=== PATIENT | female | born 1950 | race Caucasian/White ===

== ENCOUNTER → 2022-12-21 | Outpatient (CLI) | payer MEDICARE, OTHER ==
--- NOTE | 2022-12-21 18:59 | BD ---
EXAMINATION TYPE: Axial Bone Density DATE OF EXAM: 12/21/2022 CLINICAL HISTORY: 72 years old Female. ICD-10 CODE: Z78.0 ASYMPTOMATIC RU M89.9 DISORDER OF BONE, UNSPECIFIED Height: 5 ft 5 in Weight: 200 FRAX RISK QUESTIONS: Alcohol (3 or more units per day): no Family History (Parent hip fracture): no Glucocorticoids (More than 3mos): no (Ex: prednisone, prednisolone, methylprednisolone, dexamethasone, and hydrocortisone). History of Fracture in Adulthood: no Secondary Osteoporosis: 1. Type 1 Diabetes: no 2. Hyperthyroidism: no 3. Menopause before 45: no 4. Malnutrition: no 5. Chronic liver disease: no Rheumatoid Arthritis: no Current Tobacco Use: no RISK FACTORS HISTORY OF: Surgery to Spine/Hip(right/left)/Wrist (right/left): no Family History of Osteoporosis: no Active: no Diet low in dairy products/other sources of calcium: no Postmenopausal woman: yes Take estrogen and/or progesterone medications: no Lost more than 2 inches in height since high school: yes Frequent falls: no Poor Health: good Hyperparathyroidism: no Adrenal Insufficiency: no MEDICATIONS: Additional Medications: none Additional History: EXAM MEASUREMENTS: Bone mineral densitometry was performed using the [employer] System. Bone mineral density as measured about the Lumbar spine is: ----- L1-L4(G/cm2): 1.246 T Score Values are as follows: ----- L1: 0.2 ----- L2: -0.3 ----- L3: 0.9 ----- L4: 1.0 ----- L1-L4: 0.5 Z Score Values are as follows: ----- L1: 1.1 ----- L2: 0.6 ----- L3: 1.8 ----- L4: 1.9 ----- L1-L4: 1.4 prev long ago Bone mineral density about the R hip (g/cm2): 0.923 Bone mineral density about the L hip (g/cm2): 0.917 T Score values are as follows: -----R Neck: -0.8 -----L Neck: -0.9 -----R Total: 0.3 -----L Total: 0.2 Z Score values are as follows: -----R Neck: 0.5 -----L Neck: 0.5 -----R Total: 1.4 -----L Total: 1.3 prev long ago FRAX%s: The graph provided illustrates a 8.8 % chance for a major osteoporotic fx and a 1.1 % chance for the hips probability for fx in 10 years time. IMPRESSION: Normal (Values between +1 and -1 indicate normal bone mass). Consider repeating this study in 5 year s or sooner if there is some new clinical indication. NOTE: T-SCORE=SD OF THE YOUNG ADULT MEAN.
== END | disposition home or self-care (01) ==
LOC: RADBDWWP 12:26
PROVIDERS: ATTEND Family Medicine
DX: M89.9 Disorder of bone, unspecified (principal); Z78.0 Asymptomatic menopausal state
CPT/HCPCS: 77080

== ENCOUNTER → 2023-05-04 | Outpatient (CLI) | payer MEDICARE, OTHER ==
--- NOTE | 2023-05-10 09:12 | MM ---
Reason for Exam: Screening (asymptomatic). Last mammogram was performed 1 year(s) and 5 month(s) ago. Patient History: Menarche at age 10. First Full-Term at age 22. Hysterectomy at age 38. Risk Values: Noreen 5 year model risk: 1.6%. NCI Lifetime model risk: 3.7%. Prior Study Comparison: 11/09/2020 Bilateral Screening Mammogram, [facility]. 12/16/2021 Bilateral Screening Mammogram, [facility]. Tissue Density: The breast tissue is heterogeneously dense. This may lower the sensitivity of mammography. Findings: Analyzed By CAD. There is no suspicious group of microcalcifications or new suspicious mass in either breast. Overall Assessment: Benign, BI-RAD 2 Management: Screening Mammogram of both breasts in 1 year. . Patient should continue monthly self-breast exams. A clinical breast exam by your physician is recommended on an annual basis. This exam should not preclude additional follow-up of suspicious palpable abnormalities. Note on Noreen scores and lifetime risk: 1. A Noreen score greater than 3% is considered moderate risk. If this is the case, consider specialist referral to assess eligibility for a risk reducing agent. 2. If overall lifetime risk for the development of breast cancer is 20% or higher, the patient may qualify for future screening with alternating mammogram and breast MRI. Electronically signed and approved by: Gabo Maher M.D. Radiologis
== END | disposition home or self-care (01) ==
LOC: RADMAMWWP 10:00
PROVIDERS: ATTEND Family Medicine
DX: Z12.31 Encounter for screening mammogram for malignant neoplasm of breast (principal)
CPT/HCPCS: 77063; 77067

== ENCOUNTER 2023-07-07 10:59 | Observation (INO) | payer MEDICARE, OTHER ==
[2023-07-07] MEDS ORDERED: SODIUM CHLORIDE 0.9% 1,000 ML IV ONE (11:47)
[2023-07-07 12:36] LABS: Basophils # (A) 0.1 k/uL (0-0.2); Basophils % (A) 1 %; Eosinophils # (A) 0.3 k/uL (0-0.7); Eosinophils % (A) 3 %; HCT 42.3 % (34.0-46.0); HGB 14.2 gm/dL (11.4-16.0); Lymphocytes # (A) 2.2 k/uL (1.0-4.8); Lymphocytes % (A) 20 %; MCH 29.5 pg (25.0-35.0); MCHC 33.5 g/dL (31.0-37.0); Mean Platelet Volume 7.2; Monocytes # (A) 0.7 k/uL (0-1.0); Monocytes % (A) 6 %; Neutrophils % (A) 70 %; Platelet Count 272 k/uL (150-450); RDW 13.5 % (11.5-15.5); WBC 11.3 k/uL (3.8-10.6)
--- NOTE | 2023-07-07 12:53 | XR ---
EXAMINATION TYPE: XR chest 2V DATE OF EXAM: 07/07/2023 COMPARISON: None HISTORY: 72-year-old female confusion, altered mental state TECHNIQUE: AP and lateral views FINDINGS: Heart borderline in size. Aorta and pulmonary vasculature within normal limits. Hyperinflation. Hazy lung densities relating to overlying large body habitus. No consolidation or pleural effusion. IMPRESSION: Borderline heart size. Possible underlying COPD. No definite acute process.
[2023-07-07 12:56] LABS: ALT 21 U/L (4-34); AST 25 U/L (14-36); African American GFR (CKD) 73 (>60 ml/min/1.73 sqM); Albumin 4.5 g/dL (3.5-5.0); Alkaline Phosphatase 65 U/L (38-126); Anion Gap 12 mmol/L; Blood Urea Nitrogen 25 mg/dL (7-17); Calcium 10.2 mg/dL (8.4-10.2); Carbon Dioxide 28 mmol/L (22-30); Chloride 99 mmol/L (98-107); Glucose 151 mg/dL (74-99); Non-African American GFR(CKD) 64 (>60 ml/min/1.73 sqM); Potassium 4.4 mmol/L (3.5-5.1); Sodium 139 mmol/L (137-145); Total Bilirubin 0.8 mg/dL (0.2-1.3); Total Protein 7.6 g/dL (6.3-8.2)
[2023-07-07 12:57] LABS: INR 0.8 (<1.2); Partial Thromboplastin Time 23.6 sec (22.0-30.0); Prothrombin Time 9.6 sec (10.0-12.5)
--- NOTE | 2023-07-07 12:58 | CT ---
EXAMINATION TYPE: CT brain wo con DATE OF EXAM: 07/07/2023 COMPARISON: None HISTORY: 72 year-old female confusion, altered mental status TECHNIQUE: Examination was done in axial plane without intravenous contrast. Coronal and sagittal r econstructions performed. CT DLP: 1079.4 mGycm Automated exposure control for dose reduction was used. FINDINGS: There is no evidence of acute intracranial hemorrhage, acute ischemic changes, mass, mass-effect, or extra-axial fluid collection. There is no effacement of cerebral sulci or basal subarachnoid cister ns. There is no hydrocephalus. There is no midline shift. Chaney-white matter distinction is preserv ed. Moderate to severe confluent white matter hypodensities in both cerebral hemispheres. Leftward nasal septal deviation. Paranasal sinuses and mastoid air cells appear well pneumatized. Orb its and globes are intact. IMPRESSION: Moderate to severe confluent burden of chronic small vessel ischemic disease. No acute intracranial a bnormality seen.
[2023-07-07 13:07] LABS: Appearance,Urine Cloudy (Clear); Bacteria,Urine Many /hpf; Bilirubin,Urine Negative (Negative); Blood,Urine Negative (Negative); Color,Urine Yellow; Glucose,Urine (UA) Negative (Negative); Ketones,Urine Negative (Negative); Leukocyte Esterase,Urine Trace (Negative); Mucus,Urine Occasional /hpf; Nitrite,Urine Negative (Negative); PH, Urine 5.5 (5.0-8.0); Protein,Urine Negative (Negative); RBC,Urine 2 /hpf (0-5); Specific Gravity,Urine 1.024 (1.001-1.035); Squamous Epithelial Cell,Urine 3 /hpf (0-4); Urobilinogen,Urine <2.0 mg/dL (<2.0); WBC,Urine 4 /hpf (0-5)
[2023-07-07 13:08] LABS: Amphetamine Screen,Urine Not Detected (NotDetected); Barbiturate Screen,Urine Not Detected (NotDetected); Benzodiazepines Screen,Urine Detected (NotDetected); Cocaine Screen,Urine Not Detected (NotDetected); Methadone Screen, Urine Not Detected (NotDetected); Opiate Screen,Urine Not Detected (NotDetected); Oxycodone Screen, Urine Not Detected (NotDetected); Phencyclidine Screen,Urine Not Detected (NotDetected); Tricyclic Antidepressant,Urine Not Detected (NotDetected); Urn Cannabinoid Scrn Not Detected (NotDetected)
[2023-07-07] MEDS ORDERED: ASPIRIN 325 MG TAB PO STA (14:00)
[2023-07-07] MEDS ORDERED: NALOXONE 0.4 MG/ML 1 ML VIAL IV PRN (14:18)
--- NOTE | 2023-07-07 14:20 | ED ---
General Adult HPI - General Chief complaint: Neuro Symptoms/Deficit Stated complaint: Altered Mental Status Time Seen by Provider: 07/07/23 11:40 Source: patient, RN notes reviewed, old records reviewed Mode of arrival: EMS Limitations: no limitations - History of Present Illness Initial comments: Patient is a 72-year-old female presents emergency Department complaining of neuro symptoms. Was brought in from her nursing facility over concern for inte rmittent symptoms of aphasia over the last few days. Last occurred yesterday but has been occurring for multiple days per patient's daughter who speaks with her on the phone. Patient is a poor historian however is able to tell me that she is concerned that she is having difficulty finding words occasionally. Did not occur today. Denies any headaches or trauma to her brain. Denies any history of strokes. Does have a history of dementia. Denies any chest pain, shortness breath, abdominal pain, vomiting, fevers. Denies any urinary complaints. Presents for further evaluation at this time. - Related Data Home Medications Medication Instructions Recorded Confirmed ARIPiprazole [Abilify] 2.5 mg PO DAILY 07/07/23 07/07/23 Albuterol Sulfate [Albuterol 2 puff PO RT-Q4H PRN 07/07/23 07/07/23 Sulfate Hfa] Cephalexin [Keflex] 250 mg PO DAILY 07/07/23 07/07/23 Cetirizine HCl [Zyrtec] 10 mg PO HS 07/07/23 07/07/23 LORazepam [Ativan] 0.5 mg PO BID 07/07/23 07/07/23 Memantine HCl [Namenda] 5 mg PO DAILY 07/07/23 07/07/23 Mirabegron [Myrbetriq] 50 mg PO DAILY 07/07/23 07/07/23 Shaklee Vitamin 2 tab PO DAILY 07/07/23 07/07/23 Vitamin B Complex 2 cap PO DAILY 07/07/23 07/07/23 traMADol HCL/ACETAMINOPHEN 1 tab PO BID PRN 07/07/23 07/07/23 [Ultracet 37.5-325] Allergies Allergy/AdvReac Type Severity Reaction Status Date / Time Sulfa (Sulfonamide Allergy Unknown Verified 07/07/23 11:23 Antibiotics) Review of Systems ROS Statement: Those systems with pertinent positive or pertinent negative responses have been documented in the HPI. Review of Systems: CONST: Denies fever EYES: Denies blurry vision ENT: Denies nasal congestion C/V: Denies Chest pain RESP: Denies shortness of breath GI: Denies abdominal pain : Denies dysuria SKIN: Denies rash. MSK: Denies joint pain. NEURO: Denies headache ROS Other: All systems not noted in ROS Statement are negative. Past Medical History Past Medical History: No Reported History Past Surgical History: No Surgical Hx Reported Past Psychological History: No Psychological Hx Reported Smoking Status: Never smoker Past Alcohol Use History: None Reported Past Drug Use History: None Reported General Exam - General Exam Comments Initial Comments: General: Appears in no acute distress. HEAD: Normal with no signs of head trauma. EYES: PERRLA, EOMI, conjunctiva normal, no discharge. Pupils are 3 mm and equal bilaterally. ENT: Hearing grossly intact, normal oropharynx. RESPIRATORY: Clear breath sounds bilaterally. No wheezes, rales, or rhonchi. C/V: Regular rate and rhythm. S1 and S2 auscultated, no edema, peripheral pulses 2+ and intact throughout ABD: Abd is soft, nontender, nondistended EXT: Normal range of motion, no obvious deformity SKIN: No rashes or lesions observed on exposed skin. NEURO: Alert and oriented x 3. Cranial nerves II-XII intact. No focal sensory or strength deficits. NIH of 0. GCS of 15. Limitations: no limitations Course Vital Signs 07/07/23 07/07/23 07/07/23 11:06 11:13 11:30 Temperature 97.9 F Pulse Rate 78 85 73 Respiratory 18 20 16 Rate Blood Pressure 143/76 143/76 O2 Sat by Pulse 97 96 Oximetry 07/07/23 12:00 Temperature Pulse Rate Respiratory Rate Blood Pressure 144/83 O2 Sat by Pulse Oximetry Medical Decision Making - Medical Decision Making Was pt. sent in by a medical professional or institution (, PA, FOOD CHEMIST, urgent care, hospital, or senior care...) When possible be specific @ -Sent from nursing facility for further evaluation for intermittent aphasia yesterday and the day before. Did you speak to anyone other than the patient for history (EMS, parent, family, police, friend...)? What history was obtained from this source @ -Spoke with patient's daughter who did witness the aphasia as she was on the other end of the telephone. States it seemed like patient was having a difficult time speaking and talking. Occasionally talked gibberish. This is abnormal for the patient. [place] of state and is requesting admission as she is unable to take the patient to her appointments. Did you review nursing and triage notes (agree or disagree)? Why? @ -I reviewed and agree with nursing and triage notes Were old charts reviewed (outside hosp., previous admission, EMS record, old EKG, old radiological studies, urgent care reports/EKG's, senior care records)? Report findings @ -Old charts reviewed Differential Diagnosis (chest pain, altered mental status, abdominal pain women, abdominal pain men, vaginal bleeding, weakness, fever, dyspnea, syncope, headache, dizziness, GI bleed, back pain, seizure, CVA, palpatations, mental health, musculoskeletal)? @ -Dehydration, UTI, infection, CVA, aphasia of unknown origin. This list is not all inclusive. EKG interpreted by me (3pts min.). @ -As above X-rays interpreted by me (1pt min.). @ -None done CT interpreted by me (1pt min.). @ -CT brain revealed no evidence of acute intracranial process at this time. Chest x-ray reveals no obvious acute cardiopulmonary process. U/S interpreted by me (1pt. min.). @ -None done What testing was considered but not performed or refused? (CT, X-rays, U/S, labs)? Why? @ -None What meds were considered but not given or refused? Why? @ -None Did you discuss the management of the patient with other professionals (professionals i.e. , PA, FOOD CHEMIST, lab, RT, psych nurse, rn social work, oracle fusion middleware developer, teacher, search and rescue officer, pillowcase maker)? Give summary @ -Discussed with the admitting physician, Dr. Martini who accepted the patient. Was smoking cessation discussed for >3mins.? @ -No Was critical care preformed (if so, how long)? @ -No Were there social determinants of health that impacted care today? How? (Homelessness, low income, unemployed, alcoholism, drug addiction, transportation, low edu. Level, literacy, decrease access to med. care, correction, rehab)? @ -No Was there de-escalation of care discussed even if they declined (Discuss DNR or withdrawal of care, Hospice)? DNR status @ -No What co-morbidities impacted this encounter? (DM, HTN, Smoking, COPD, CAD, Cancer, CVA, ARF, Chemo, Hep., AIDS, mental health diagnosis, sleep apnea, morb id obesity)? @ -None Was patient admitted / discharged? Hospital course, mention meds given and route, prescriptions, significant lab abnormalities, going to OR and other pertinent info. @ -Based on the patient's presentation and physical exam, presents emergency department for evaluation for intermittent aphasia over few days. Last occurred yesterday. Witness by daughter who I spoke with over the phone, . She is requesting admission for neuro evaluation if everything comes back negative that she does live out of state and cannot take patient to appointments. Vital signs are within except for limits. We will obtain labs, CT brain. Patient agreement this plan. Patiently currently has an NIH of 0. No symptoms today. EKG showed no signs of ischemia. Chest x-ray unremarkable. CT brain shows no obvious acute intracranial process. Laboratory studies are negative for any obvious acute acute findings. Reevaluation come patient's neuro exam is unremarkable. I discussed results with the patient as well as patient's daughter. They're both agree with plan for observation admission with evaluation by neurology. Patient will be given 325 mg of aspirin. Patient is in agreement this plan. Remains asymptomatic. Remains to have an NIH is 0. Spoke with the admitting physician, Dr. Martini who accepted the patient. Undiagnosed new problem with uncertain prognosis? @ -No Drug Therapy requiring intensive monitoring for toxicity (Heparin, Nitro, Insulin, Cardizem)? @ -No Were any procedures done? @ -No Diagnosis/symptom? @ -Intermittent aphasia Acute, or Chronic, or Acute on Chronic? @ -Acute Uncomplicated (without systemic symptoms) or Complicated (systemic symptoms)? @ -Uncomplicated Side effects of treatment? @ -No Exacerbation, Progression, or Severe Exacerbation? @ -No Poses a threat to life or bodily function? How? (Chest pain, USA, CA, pneumonia, PE, COPD, DKA, ARF, appy, cholecystitis, CVA, Diverticulitis, Homicidal, Suicidal, threat to staff... and all critical care pts) @ -Possibly, yes - Lab Data Result diagrams: 07/07/23 11:54 07/07/23 11:54 Lab Results 07/07/23 07/07/23 07/07/23 Range/Units 11:54 11:54 11:54 WBC 11.3 H (3.8-10.6) k/uL RBC 4.80 (3.80-5.40) m/uL Hgb 14.2 (11.4-16.0) gm/dL Hct 42.3 (34.0-46.0) % MCV 88.0 (80.0-100.0) fL MCH 29.5 (25.0-35.0) pg MCHC 33.5 (31.0-37.0) g/dL RDW 13.5 (11.5-15.5) % Plt Count 272 (150-450) k/uL MPV 7.2 Neutrophils % 70 % Lymphocytes % 20 % Monocytes % 6 % Eosinophils % 3 % Basophils % 1 % Neutrophils # 8.0 H (1.3-7.7) k/uL Lymphocytes # 2.2 (1.0-4.8) k/uL Monocytes # 0.7 (0-1.0) k/uL Eosinophils # 0.3 (0-0.7) k/uL Basophils # 0.1 (0-0.2) k/uL PT 9.6 L (10.0-12.5) sec INR 0.8 (<1.2) APTT 23.6 (22.0-30.0) sec Sodium (137-145) mmol/L Potassium (3.5-5.1) mmol/L Chloride (98-107) mmol/L Carbon Dioxide (22-30) mmol/L Anion Gap mmol/L BUN (7-17) mg/dL Creatinine (0.52-1.04) mg/dL Est GFR (CKD-EPI)AfAm (>60 ml/min/1.73 sqM) Est GFR (CKD-EPI)NonAf (>60 ml/min/1.73 sqM) Glucose (74-99) mg/dL Calcium (8.4-10.2) mg/dL Total Bilirubin (0.2-1.3) mg/dL AST (14-36) U/L ALT (4-34) U/L Alkaline Phosphatase (38-126) U/L Ammonia (<30) umol/L Total Protein (6.3-8.2) g/dL Albumin (3.5-5.0) g/dL Urine Color Yellow Urine Appearance Cloudy H (Clear) Urine pH 5.5 (5.0-8.0) Ur Specific [place] 1.024 (1.001-1.035) Urine Protein Negative (Negative) Urine Glucose (UA) Negative (Negative) Urine Ketones Negative (Negative) Urine Blood Negative (Negative) Urine Nitrite Negative (Negative) Urine Bilirubin Negative (Negative) Urine Urobilinogen <2.0 (<2.0) mg/dL Ur Leukocyte Esterase Trace H (Negative) Urine RBC 2 (0-5) /hpf Urine WBC 4 (0-5) /hpf Ur Squamous Epith Cells 3 (0-4) /hpf Urine Bacteria Many H (None) /hpf Urine Mucus Occasional H (None) /hpf Urine Opiates Screen Not Detected (NotDetected) Ur Oxycodone Screen Not Detected (NotDetected) Urine Methadone Screen Not Detected (NotDetected) Ur Propoxyphene Screen Not Detected (NotDetected) Ur Barbiturates Screen Not Detected (NotDetected) U Tricyclic Antidepress Not Detected (NotDetected) Ur Phencyclidine Scrn Not Detected (NotDetected) Ur Amphetamines Screen Not Detected (NotDetected) U Methamphetamines Scrn Not Detected (NotDetected) U Benzodiazepines Scrn Detected H (NotDetected) Urine Cocaine Screen Not Detected (NotDetected) U Marijuana (THC) Screen Not Detected (NotDetected) 07/07/23 07/07/23 Range/Units 11:54 11:54 WBC (3.8-10.6) k/uL RBC (3.80-5.40) m/uL Hgb (11.4-16.0) gm/dL Hct (34.0-46.0) % MCV (80.0-100.0) fL MCH (25.0-35.0) pg MCHC (31.0-37.0) g/dL RDW (11.5-15.5) % Plt Count (150-450) k/uL MPV Neutrophils % % Lymphocytes % % Monocytes % % Eosinophils % % Basophils % % Neutrophils # (1.3-7.7) k/uL Lymphocytes # (1.0-4.8) k/uL Monocytes # (0-1.0) k/uL Eosinophils # (0-0.7) k/uL Basophils # (0-0.2) k/uL PT (10.0-12.5) sec INR (<1.2) APTT (22.0-30.0) sec Sodium 139 (137-145) mmol/L Potassium 4.4 (3.5-5.1) mmol/L Chloride 99 (98-107) mmol/L Carbon Dioxide 28 (22-30) mmol/L Anion Gap 12 mmol/L BUN 25 H (7-17) mg/dL Creatinine 0.90 (0.52-1.04) mg/dL Est GFR (CKD-EPI)AfAm 73 (>60 ml/min/1.73 sqM) Est GFR (CKD-EPI)NonAf 64 (>60 ml/min/1.73 sqM) Glucose 151 H (74-99) mg/dL Calcium 10.2 (8.4-10.2) mg/dL Total Bilirubin 0.8 (0.2-1.3) mg/dL AST 25 (14-36) U/L ALT 21 (4-34) U/L Alkaline Phosphatase 65 (38-126) U/L Ammonia <9 (<30) umol/L Total Protein 7.6 (6.3-8.2) g/dL Albumin 4.5 (3.5-5.0) g/dL Urine Color Urine Appearance (Clear) Urine pH (5.0-8.0) Ur Specific [place] (1.001-1.035) Urine Protein (Negative) Urine Glucose (UA) (Negative) Urine Ketones (Negative) Urine Blood (Negative) Urine Nitrite (Negative) Urine Bilirubin (Negative) Urine Urobilinogen (<2.0) mg/dL Ur Leukocyte Esterase (Negative) Urine RBC (0-5) /hpf Urine WBC (0-5) /hpf Ur Squamous Epith Cells (0-4) /hpf Urine Bacteria (None) /hpf Urine Mucus (None) /hpf Urine Opiates Screen (NotDetected) Ur Oxycodone Screen (NotDetected) Urine Methadone Screen (NotDetected) Ur Propoxyphene Screen (NotDetected) Ur Barbiturates Screen (NotDetected) U Tricyclic Antidepress (NotDetected) Ur Phencyclidine Scrn (NotDetected) Ur Amphetamines Screen (NotDetected) U Methamphetamines Scrn (NotDetected) U Benzodiazepines Scrn (NotDetected) Urine Cocaine Screen (NotDetected) U Marijuana (THC) Screen (NotDetected) - EKG Data -: EKG Interpreted by Me EKG Comments: 12-lead Electrocardiogram Interpretation Note EKG was reviewed and interpreted by myself. 12-lead ECG performed at 1106 is interpreted by me as revealing normal sinus rhythm at a rate of 78 beats per minute. [place] is normal. CT interval is 145 ms, QRS duration is 102 ms, QTc is 407 ms.. There were no ST or T wave abnormalities to suggest myocardial ischemia or injury. R wave progression across the precordium was satisfactory. By my interpretation this EKG is non-diagnostic for acute ischemia. Disposition Clinical Impression: Aphasia Disposition: ADMITTED IP TO THIS HOSP Condition: Stable Referrals: Connor Hernandez MD [Primary Care Provider] - 1-2 days Time of Disposition: 14:01
[2023-07-07] MEDS ORDERED: ALBUTEROL NEBULIZED 2.5 MG/3 ML INHALATION PRN (15:07)
[2023-07-07] MEDS: HEPARIN SODIUM,PORCINE 5,000 UNIT/ML 1 ML VIAL SQ SCH ×2 (18:41→20:52)
--- NOTE | 2023-07-07 20:35 | P.CNNES ---
History of Present Illness Consult date: 07/07/23 Requesting physician: Anthony Reyes Reason for Consult: intermittent aphasia x multiple days History of Present Illness: Patient is a 72-year-old right-handed female came to the hospital by ambulance today at 10:59 AM for possible stroke/TIA. Patient states that yesterday one of her friend was visiting her and they went for lunch. At around 1 PM, patient noticed that she could not control her words. She couldn't think the right word and then she said something, was different, not that she meant to say. Her f riend also noticed the speech difficulty right away, and that she was not able to articulate well. There was no facial droop, or any other focal neurological symptoms like focal numbness, tingling, visual disturbance or problems with the balance. Patient tells me that the symptoms lasted as long as she talked to her friend which she felt was about 1 hour. However late evening, around 3-4 PM, tai ivy spoke to her daughter, who lives in [place], and told her that "something changed in the last couple days", and the patient's daughter also noticed some confusion, as patient was searching for words and sometimes she would be saying something and then becomes gibberish. Later it was discovered through patient's friends, that patient has been having these symptoms almost for the previous 2 days. Patient's daughter mentions that she has not spoken to her mom for last 4 days because she was out in [place]. Patient did not want to go to the hospital at night therefore she waited in the next morning, which is yesterday patient's daughter called the ambulance and she was brought to the [facility] at around 11 AM. Patient's daughter believes that today she is talking much better. As per EMS flow sheet, when they arrived, patient was alert breathing normally, seated in a chair in her living room, oriented 3. Patient answering most questions appropriately, but unable to tell personnel the year. Patient yesterday afternoon had developed a painful headache as well as mild aphasia th at lasted a few hours. Patient denies any previous TIA or stroke history. Patient is not diabetic and blood glucose elevated at 192. The headache located in the temples, not as painful as when it started yesterday. Patient denied dizziness, lightheadedness or unsteady gait or any weakness or changes in the mobility. EKG shows sinus rhythm. Patient's vitals at the scene was blood pressure 166/90, pulse rate 78 respirations 16, saturation 97%, blood sugar 192. Blood test shows normal hemoglobin with WBC 11.3, platelets are normal, PT/PTT, CMP is normal. UA is negative except for trace leukocyte esterase. Urine drug screen positive for benzodiazepine. CT head revealed moderate to severe confluent burden of chronic small vessel ischemic disease. No acute intracranial process. I personally reviewed CT head, agree with the findings. EKG shows sinus rhythm, chest x-ray showed borderline heart size. Possible underlying COPD. Patient currently lives in [facility] because of her mild cognitive impairment, not able to take care all by herself. It is still an independent living facility, but patient's daughter has arranged some extra services to check on her. She cannot drive. At present patient complains of some pressure in her head, which she relates 5/10. It is not a headache pain, no history of strokes or TIAs in the past. Patient has never smoked, never drinks. Home medications include tramadol, Ativan 0.5 mA twice a day, Abilify 2.5 mg daily, Namenda 5 mg daily. Myrbetriq. Patient tells me that she is not taking any medication except for some multivitamins. Patient's daughter mentions that she is taking the medications as mentioned above, although patient's daughter was not sure, she lives in [place]. Patient does not take any antiplatelet medication or anticoagulants. Review of Systems Constitutional: Reports weight loss, Denies chills, Denies fever Eyes: denies blurred vision, denies diplopia, denies pain Ears: deny: decreased hearing, ear discharge Ears, nose, mouth and throat: Reports headache, Denies sore throat, Denies vertigo Cardiovascular: Denies chest pain, Denies shortness of breath Respiratory: Denies cough, Denies excessive sputum Gastrointestinal: Denies abdominal pain, Denies diarrhea, Denies nausea, Denies vomiting Genitourinary: Reports urge incontinence, Reports urgency, Denies dysuria, Denies hematuria Musculoskeletal: Denies low back pain, Denies myalgias, Denies neck pain Integumentary: Denies pruritus, Denies rash Neurological: Reports as per HPI Psychiatric: Denies anxiety, Denies depression Endocrine: Reports weight change, Denies fatigue Hematologic/Lymphatic: Denies easy bleeding, Denies easy bruising Past Medical History Past Medical History: No Reported History Past Surgical History: No Surgical Hx Reported Past Psychological History: No Psychological Hx Reported Smoking Status: Never smoker Past Alcohol Use History: None Reported Past Drug Use History: None Reported Medications and Allergies Home Medications Medication Instructions Recorded Confirmed Type ARIPiprazole [Abilify] 2.5 mg PO DAILY 07/07/23 07/07/23 History Albuterol Sulfate [Albuterol 2 puff PO RT-Q4H PRN 07/07/23 07/07/23 History Sulfate Hfa] Cephalexin [Keflex] 250 mg PO DAILY 07/07/23 07/07/23 History Cetirizine HCl [Zyrtec] 10 mg PO HS 07/07/23 07/07/23 History LORazepam [Ativan] 0.5 mg PO BID 07/07/23 07/07/23 History Memantine HCl [Namenda] 5 mg PO DAILY 07/07/23 07/07/23 History Mirabegron [Myrbetriq] 50 mg PO DAILY 07/07/23 07/07/23 History Shaklee Vitamin 2 tab PO DAILY 07/07/23 07/07/23 History Vitamin B Complex 2 cap PO DAILY 07/07/23 07/07/23 History traMADol HCL/ACETAMINOPHEN 1 tab PO BID PRN 07/07/23 07/07/23 History [Ultracet 37.5-325] Allergies Allergy/AdvReac Type Severity Reaction Status Date / Time Sulfa (Sulfonamide Allergy Unknown Verified 07/07/23 11:23 Antibiotics) Physical Examination - Vital Signs Vital Signs: Vital Signs Temp Pulse Resp BP Pulse Ox 07/07/23 12:00 144/83 07/07/23 11:30 73 16 143/76 96 07/07/23 11:13 97.9 F 85 20 143/76 97 07/07/23 11:06 78 18 Intake and Output 07/07/23 07/07/23 07/07/23 06:59 14:59 22:59 Other: Weight 102.058 kg Patient is an elderly female, very pleasant, in no acute distress. Patient is alert awake oriented to time place and person. Speech and language functions are normal. Patient can name and repeat very well. No aphasia or dysarthria. Attention, concentration and fund of knowledge is adequate. No paraphasic errors noted during conversation. On cranial nerve examination, pupils are equal, round and reacting to light, visual mcclelland are full on confrontation, with no neglect on double simultaneous stimulation. Extraocular muscles are intact with no nystagmus. Face is symmetric, tongue protrudes to the midline. Palatal elevation and sensation normal, hearing and shoulder shrug normal, facial sensation normal. On muscle strength testing, there is no pronator drift and the strength is n ormal in arms and legs distally and proximally. Deep tendon reflexes are (right/left) biceps 2+/2+, brachioradialis 2+/2+, knees 2/2, ankles 2+/1 and plantars downgoing bilaterally. Sensory to touch is equal with no neglect on double simultaneous stimulation. Cerebellar function showed some shaking/tremors for [id number] testing, but no ataxia. Patient has mild to moderate postural tremors of outstretched hands. Patient believes she has tremors of hands for last 6-8 years. No dysdiadochokinesia. No ataxia for [id number] testing on either side. Tone and bulk of muscles normal. Patient has intermittent resting tremor of the right hand. Gait deferred.. On general examination, there is no carotid bruit or murmur, S1-S2 audible. Chest is clear on consultation. Abdomen is soft nontender. No organomegaly, bowel sounds present. Peripheral pulses are present. No peripheral edema. Results - Laboratory Findings CBC and BMP: 07/08/23 03:51 07/08/23 03:51 Abnormal Lab Findings: Abnormal Labs 07/07/23 07/07/23 07/07/23 11:54 11:54 11:54 WBC 11.3 H Neutrophils # 8.0 H PT 9.6 L BUN Glucose Urine Appearance Cloudy H Ur Leukocyte Esterase Trace H Urine Bacteria Many H Urine Mucus Occasional H U Benzodiazepines Scrn Detected H 07/07/23 11:54 WBC Neutrophils # PT BUN 25 H Glucose 151 H Urine Appearance Ur Leukocyte Esterase Urine Bacteria Urine Mucus U Benzodiazepines Scrn Assessment and Plan Assessment: * Probable stroke/TIA. Patient had mild expressive aphasia for an hour, although patient's daughter believes she has been complaining for last couple days. Current NIH stroke scale is 0. Patient not a candidate for TPA. * Hypertension * Hyperlipidemia * Mild cognitive impairment Plan: * MRI of the brain without contrast, evaluate for acute to subacute CVA * 2-D echo with bubble study to rule out PFO * Carotid Doppler, rule out stenosis * Fasting a.m. lipid panel * Hemoglobin A1c * B12, folate * Optimize control of blood pressure * Start aspirin. Patient received aspirin 324 mg in the ER. We will maintain on aspirin 81 mg daily. * Neuro checks * Telemetry monitoring rule out any arrhythmia * PT, OT, speech therapy * DVT prophylaxis: Heparin 5000 units subcu every 8 hours * Discussed with patient's daughter in detail * Neurology will continue to follow. Thank you for the consult.
[2023-07-07] MEDS: LORATADINE 10 MG TAB PO SCH (20:52)
--- NOTE | 2023-07-08 08:05 | US ---
EXAMINATION TYPE: US carotid duplex BILAT DATE OF EXAM: 07/07/2023 COMPARISON: NONE CLINICAL INDICATION: Female, 72 years old with history of TIA; TIA TECHNIQUE: Carotid duplex ultrasound examination. Indirect Doppler criteria was utilized. FINDINGS: EXAM MEASUREMENTS: RIGHT: Peak Systolic Velocity (PSV) cm/sec ----- Right CCA: 89.7 ----- Right ICA: 71.2 ----- Right ECA: 189.3 ICA/CCA ratio: 0.8 RIGHT: End Diastole cm/sec ----- Right CCA: 7.3 ----- Right ICA: 17.1 ----- Right ECA: 8.1 LEFT: Peak Systolic Velocity (PSV) cm/sec ----- Left CCA: 68.6 ----- Left ICA: 80.9 ----- Left ECA: 120.0 ICA/CCA ratio: 1.2 LEFT: End Diastole cm/sec ----- Left CCA: 7.5 ----- Left ICA: 22.6 ----- Left ECA: 0.0 VERTEBRALS (direction of flow): Right Vertebral: Antegrade Left Vertebral: Antegrade Rhythm: Arrhythmia WOOL CLEANER NOTES: Intimal thickening seen bilaterally. Tortuous right ECA which appears to have bidirectional flow. Elevated velocity within right ECA*. *Incidental finding: Hypoechoic nodule with calcifications seen within the right thyroid lobe at mid: 3.2 x 2.6 x 3.2 cm. IMPRESSION: Less than 50% stenosis of bilateral carotid bifurcations. Criteria for Assigning % of Stenosis / Diameter reduction (Estimation based on the indirect measurements of the internal carotid artery velocities (ICA PSV). 1. Normal (no stenosis)=ICA PSV < 125 cm/s: ratio < 2.0: ICA EDV<40 cm/s. 2. Less than 50% stenosis=ICA PSV < 125 cm/s: ratio < 2.0: ICA EDV<40 cm/s. 3. 50 to 69% stenosis=ICA PSV of 125 to 230 cm/s: ration 2.0 ? 4.0: ICA EDV 40-100 cm/s. 4. Greater than 70% stenosis to near occlusion= ICA PSV > 230 cm/s: ratio > 4.0: ICA EDV > 100 cm/s. 5. Near occlusion= ICA PSV velocities may be low or undetectable: variable ratio and ICA EDV. 6. Total occlusion=unable to detect flow.
[2023-07-08 09:26] LABS: Basophils # (A) 0.06 X 10*3/uL (0.00-0.10); Basophils % (A) 0.7 %; Eosinophils # (A) 0.37 X 10*3/uL (0.04-0.35); HCT 42.1 % (37.2-46.3); HGB 13.8 g/dL (12.0-15.0); Lymphocytes # (A) 2.13 X 10*3/uL (0.90-5.00); Lymphocytes % (A) 23.2 %; MCH 28.5 pg (27.0-32.0); MCHC 32.8 g/dL (32.0-37.0); Mean Platelet Volume 9.9 FL (9.5-12.2); Monocytes # (A) 0.76 X 10*3/uL (0.20-1.00); Monocytes % (A) 8.3 %; NRBC Per 100 WBC 0 X 10*3/uL (0.00-0.01); Neutrophils # (A) 5.83 X 10*3/uL (1.80-7.70); Neutrophils % (A) 63.5 %; Platelet Count 266 X 10*3/uL (140-440); RBC 4.84 X 10*6/uL (4.10-5.20); RDW 13.8 % (11.5-14.5); WBC 9.18 X 10*3/uL (4.50-10.00)
[2023-07-08 10:29] LABS: Blood Urea Nitrogen 21.2 mg/dL (9.0-27.0); Carbon Dioxide 25.4 mmol/L (21.6-31.8); Chloride 102 mmol/L (96-109); Chol/HDL Ratio 3.95 Ratio; Glucose 147 mg/dL (70-110); LDL Cholesterol,Calculated 132.2 mg/dL (0.0-131.0); Potassium 4.6 mmol/L (3.5-5.5); Sodium 141 mmol/L (135-145)
[2023-07-08] MEDS: ARIPiprazole 5 MG TAB PO SCH (10:32)
[2023-07-08] MEDS: ASPIRIN 81 MG PO SCH (10:33)
[2023-07-08] MEDS: HEPARIN SODIUM,PORCINE 5,000 UNIT/ML 1 ML VIAL SQ SCH ×2 (10:33→21:39)
[2023-07-08] MEDS: MEMANTINE 5 MG TAB PO SCH (11:40)
--- NOTE | 2023-07-08 12:08 | CA ---
Transthoracic Echo Report Name: Kinza Conrad Age: 73 Gender: F : 1950 Exam Date: 07/08/2023 08:49 Exam Location: [facility] Ht (in): 67 Wt (lb): 225 Ordering Physician: Gael Perkins MD Attending/Referring Phys: Pipe Tester Eunice Hazel RDCS Procedure CPT: Indications: tia Cardiac Hx: Technical Quality: Fair Contrast 1: Agitated Saline Total Dose (mL): 10 Contrast 2: Total Dose (mL): MEASUREMENTS (Male / Female) Normal Values 2D ECHO LV Diastolic Diameter PLAX 2.5 cm 4.2 - 5.9 / 3.9 - 5.3 cm LV Systolic Diameter PLAX 1.7 cm IVS Diastolic Thickness 1.5 cm 0.6 - 1.0 / 0.6 - 0.9 cm LVPW Diastolic Thickness 1.5 cm 0.6 - 1.0 / 0.6 - 0.9 cm LV Relative Wall Thickness 1.2 RV Internal Dim ED PLAX 2.9 cm LVOT Diameter 1.8 cm LA Volume 69.3 cm??? 18 - 58 / 22 - 52 cm??? LA Volume Index 31.0 cm???/m??? 16 - 28 cm???/m??? M-MODE Aortic Root Diameter MM 3.7 cm LA Systolic Diameter MM 3.2 cm LA Ao Ratio MM 0.9 AV Cusp Separation MM 1.8 cm DOPPLER AV Peak Velocity 126.8 cm/s AV Peak Gradient 6.4 mmHg AV Mean Velocity 94.8 cm/s AV Mean Gradient 4.0 mmHg AV Velocity Time Integral 24.2 cm LVOT Peak Velocity 102.3 cm/s LVOT Peak Gradient 4.2 mmHg LVOT Velocity Time Integral 21.9 cm LVOT Stroke Volume 54.7 cm??? LVOT Stroke Volume Index 25.7 ml/m??? LVOT Cardiac Index 2052.9 cm???/min???m??? AV Area Cont Eq vti 2.3 cm??? AV Area Cont Eq pk 2.0 cm??? MV Area PHT 3.3 cm??? Mitral E Point Velocity 45.2 cm/s Mitral A Point Velocity 85.1 cm/s Mitral E to A Ratio 0.5 MV Deceleration Time 227.7 ms MV E' Velocity 6.0 cm/s Mitral E to MV E' Ratio 7.6 TR Peak Velocity 241.9 cm/s TR Peak Gradient 23.4 mmHg Right Ventricular Systolic Press 28.4 mmHg FINDINGS Left Ventricle Moderately increased left ventricular wall thickness. Left ventricular cavity size normal. Normal left ventricular systolic function with no obvious regional wall motion abnormalities. Left ventricular ejection fraction is estimated at 55-60 %. Right Ventricle Normal right ventricular size and function. Right ventricular systolic pressure within normal limits. Right Atrium Normal right atrial size. Negative agitated saline bubble study for right to left shunt. Left Atrium Mildly increased left atrial volume. Mildly increased left atrial area. Mitral Valve Structurally normal mitral valve. Mild mitral regurgitation. Aortic Valve Trileaflet aortic valve. No aortic valve stenosis or regurgitation. Tricuspid Valve Structurally normal tricuspid valve. Mild tricuspid regurgitation. Pulmonic Valve Structurally normal pulmonic valve. Pericardium No pericardial effusion. Aorta Normal size aortic root and proximal ascending aorta. CONCLUSIONS Moderately increased left ventricular wall thickness Left ventricular ejection fraction 55-60% Negative bubble study Mildly dilated left atrium Mild mitral regurgitation Mild tricuspid regurgitation Previewed by: Dr. Justin Curtis DO (Electronically Signed) Final Date: 08 July 2023 12:08
--- NOTE | 2023-07-08 13:20 | P.HPIM ---
History of Present Illness This is a pleasant 73 years old female with multiple medical problems as below. Presents because of transient period of expressive aphasia that lasted for about an hour associated with little headache and lightheadedness. This morning patient says that her speech is back to normal, she doesn't have headache but she still feels her head little funny. She denies dizziness weakness or numbness. She denies chest pain or dyspnea. No change in urine or bowel habits. No fever. She denies smoking alcohol or illicit drugs. Labs were unremarkable except for mild leukocytosis of 11.3 came back to reference range at 9.1 Rest of vital CBC INR BMP liver enzymes were unremarkable. Ammonia level was less than 9 Urine analysis is a cloudy with trace leukocyte esterase UDS: Is positive for benzodiazepine. CT of the brain: No acute intracranial process but there is moderate to severe confluent burden of chronic small vessel ischemic disease. Echocardiogram: Ejection fraction of 55-60%. Moderate LVH. Negative bubble study. Carotid Doppler: Less than 50% stenosis Incidental findings of thyroid nodule 3.2 x 2.6 x 3.2 cm Patient states that her PCP recently retired and she recently moved with Dr. Mena but she agrees to follow up with him upon discharge Review of Systems Review of systems CONSTITUTIONAL: No fever, no malaise, no fatigue. HEENT: No recent visual problems or hearing problems. Denied any sore throat. CARDIOVASCULAR: No orthopnea, PND, no palpitations, no syncope. PULMONARY: No shortness of breath, no cough, no hemoptysis. GASTROINTESTINAL: No diarrhea, no nausea, no vomiting, no abdominal pain. Normoactive bowel sounds. NEUROLOGICAL: No headaches, no weakness, no numbness. HEMATOLOGICAL: Denies any bleeding or petechiae. GENITOURINARY: Denies any burning micturition, frequency, or urgency. MUSCULOSKELETAL/RHEUMATOLOGICAL: Denies any joint pain, swelling, or any muscle pain. ENDOCRINE: Denies any polyuria or polydipsia. Past Medical History Past Medical History: No Reported History History of Any Multi-Drug Resistant Organisms: None Reported Past Surgical History: No Surgical Hx Reported Past Psychological History: No Psychological Hx Reported Smoking Status: Never smoker Past Alcohol Use History: None Reported Past Drug Use History: None Reported Medications and Allergies Home Medications Medication Instructions Recorded Confirmed Type ARIPiprazole [Abilify] 2.5 mg PO DAILY 07/07/23 07/07/23 History Albuterol Sulfate [Albuterol 2 puff PO RT-Q4H PRN 07/07/23 07/07/23 History Sulfate Hfa] Cephalexin [Keflex] 250 mg PO DAILY 07/07/23 07/07/23 History Cetirizine HCl [Zyrtec] 10 mg PO HS 07/07/23 07/07/23 History LORazepam [Ativan] 0.5 mg PO BID 07/07/23 07/07/23 History Memantine HCl [Namenda] 5 mg PO DAILY 07/07/23 07/07/23 History Mirabegron [Myrbetriq] 50 mg PO DAILY 07/07/23 07/07/23 History Shaklee Vitamin 2 tab PO DAILY 07/07/23 07/07/23 History Vitamin B Complex 2 cap PO DAILY 07/07/23 07/07/23 History traMADol HCL/ACETAMINOPHEN 1 tab PO BID PRN 07/07/23 07/07/23 History [Ultracet 37.5-325] Allergies Allergy/AdvReac Type Severity Reaction Status Date / Time Sulfa (Sulfonamide Allergy Unknown Verified 07/07/23 11:23 Antibiotics) Physical Exam Vitals: Vital Signs Temp Pulse Pulse Resp BP BP Pulse Ox 07/08/23 02:29 97.6 F 86 18 137/80 96 07/07/23 19:48 98.1 F 89 17 158/99 99 07/07/23 18:40 97.4 F L 85 18 143/84 98 07/07/23 18:05 97.4 F L 85 18 143/84 98 07/07/23 12:00 144/83 07/07/23 11:30 73 16 143/76 96 07/07/23 11:13 97.9 F 85 20 143/76 97 07/07/23 11:06 78 18 Intake and Output 07/07/23 07/07/23 07/08/23 14:59 22:59 06:59 Intake Total 118 Balance 118 Intake: Oral 118 Other: Voiding Method Diaper # Voids 1 2 Weight 102.058 kg 102.058 kg GENERAL: The patient is alert and oriented x3, not in any acute distress. Well developed, well nourished. HEENT: Pupils are round and equally reacting to light. EOMI. No scleral icterus. No conjunctival pallor. Normocephalic, atraumatic. No pharyngeal erythema. No thyromegaly. CARDIOVASCULAR: S1 and S2 present. No murmurs, rubs, or gallops. PULMONARY: Chest is clear to auscultation, no wheezing , no crackles. ABDOMEN: Soft, nontender, nondistended, normoactive bowel sounds. No palpable organomegaly. MUSCULOSKELETAL: No joint swelling or deformity. EXTREMITIES: No cyanosis, clubbing, or pedal edema. NEUROLOGICAL: Gross neurological examination did not reveal any focal deficits. SKIN: No rashes. no petechiae. Results CBC & Chem 7: 07/08/23 03:51 07/08/23 03:51 Labs: Abnormal Lab Results - Last 24 Hours (Table) 07/07/23 07/07/23 07/07/23 Range/Units 11:54 11:54 11:54 WBC 11.3 H (3.8-10.6) k/uL Neutrophils # 8.0 H (1.3-7.7) k/uL PT 9.6 L (10.0-12.5) sec BUN (7-17) mg/dL Glucose (74-99) mg/dL Urine Appearance Cloudy H (Clear) Ur Leukocyte Esterase Trace H (Negative) Urine Bacteria Many H (None) /hpf Urine Mucus Occasional H (None) /hpf U Benzodiazepines Scrn Detected H (NotDetected) 07/07/23 Range/Units 11:54 WBC (3.8-10.6) k/uL Neutrophils # (1.3-7.7) k/uL PT (10.0-12.5) sec BUN 25 H (7-17) mg/dL Glucose 151 H (74-99) mg/dL Urine Appearance (Clear) Ur Leukocyte Esterase (Negative) Urine Bacteria (None) /hpf Urine Mucus (None) /hpf U Benzodiazepines Scrn (NotDetected) Assessment and Plan Assessment: Transient ischemic attack with mild expressive aphasia that's improved now New-onset diabetes mellitus Nodule needs to be checked as an outpatient Obesity with BMI of 35.2 Sleep ischemia Plan: Patient informed that she has diabetes, started on metformin and dietary consult Patient is started on Lipitor Patient also continued on aspirin 81 mg and risk and benefits were explained for her extensively including the risk of brain bleed and she agrees to continue Neurology on the case MRI of the brain pending Patient informed about her thyroid nodule with recommendation for follow up with mechanical drawing teacher Dr. Swain/Dr. Martini as an outpatient, risk of cancer explained for her and she verbalized understanding and acceptance Labs and medication were reviewed.. Continue same treatment. Continue with symptomatic treatment. Resume home medication. Monitor labs and vitals. DVT and GI prophylaxis. Further recommendations as per clinical course of the patient DVT prophylaxis: Subcutaneous heparin GI Prophylaxis: Pepcid Prognosis is guarded
--- NOTE | 2023-07-08 13:58 | MR ---
EXAMINATION TYPE: MR brain wo con DATE OF EXAM: 07/08/2023 1:04 PM CLINICAL INDICATION:Female, 73 years old with history of cva; PHH, Altered mental status, CVA. COMPARISON: 07/07/2023. TECHNIQUE: Multi planar, multi sequence imaging was performed through the brain including: T1, T2, In version recovery, Diffusion weighted imaging, and gradient echo imaging. No gadolinium was given. FINDINGS: Prominent high T2 signal perivascular spaces. The orellana-white junctions, ventricular system, and ciste rns appear unremarkable. Remote high T2 signal injuries in the bilateral isaac radiata of the fronta l lobe. Scattered foci and confluent areas of of high T2 signal intensity are seen within the periven tricular white matter. Midline structures show no abnormality. Diffusion-weighted imaging shows no ev idence of restricted diffusion. The susceptibility weighted images do not reveal any evidence for urvashi ro-hemorrhage. The bone marrow signal is within normal limits. Paranasal sinuses and mastoid air cells: No significant paranasal sinus disease. Visualized orbits: Orbital contents are intact. IMPRESSION: 1. No evidence of intracranial mass or acute/subacute infarct. 2. Extensive diffuse white matter changes. Correlate for chronic small vessel ischemic disease.
[2023-07-08 15:45] LABS: Glucose,Whole Blood 177 mg/dL (70-110)
[2023-07-08 16:28] VITALS: BMI 35.2
--- NOTE | 2023-07-08 17:51 | P.PN ---
Subjective Progress Note Date: 07/08/23 Patient was seen for a follow-up. Denies any new neurological symptoms Objective - Vital Signs Vital signs: Vital Signs Temp 97.4 F L 07/08/23 14:55 Pulse 92 07/08/23 14:55 Resp 15 07/08/23 14:55 BP 115/74 07/08/23 14:55 Pulse Ox 97 07/08/23 14:55 FiO2 Intake & Output 07/07/23 07/08/23 07/08/23 18:59 06:59 18:59 Intake Total 118 236 Balance 118 236 Weight 102.058 kg Intake: Oral 118 236 Other: Voiding Method Diaper # Voids 2 2 - Exam examination remains unchanged. Mentation normal. - Labs CBC & Chem 7: 07/08/23 03:51 07/08/23 03:51 Labs: Abnormal Lab Results - Last 24 Hours (Table) 07/08/23 07/08/23 07/08/23 Range/Units 03:51 03:51 03:51 Eosinophils # 0.37 H (0.04-0.35) X 10*3/uL Anion Gap 13.60 H (4.00-12.00) mmol/L Est GFR (CKD-EPI) 59 L (>=60) BUN/Creatinine Ratio 21.20 H (12.00-20.00) Ratio Glucose 147 H (70-110) mg/dL POC Glucose (mg/dL) (70-110) mg/dL Hemoglobin A1c 7.6 H (<=6.0) % Triglycerides 250.00 H (0.00-149.00) mg/dL Cholesterol 244.00 H (0.00-200.00) mg/dL LDL Cholesterol, Calc 132.2 H (0.0-131.0) mg/dL VLDL Cholesterol, Calc 50.00 H (5.00-40.00) mg/dL HDL Cholesterol 61.80 H (40.00-60.00) mg/dL Folate (4.40-31.00) ng/mL 07/08/23 07/08/23 Range/Units 07:25 15:44 Eosinophils # (0.04-0.35) X 10*3/uL Anion Gap (4.00-12.00) mmol/L Est GFR (CKD-EPI) (>=60) BUN/Creatinine Ratio (12.00-20.00) Ratio Glucose (70-110) mg/dL POC Glucose (mg/dL) 177 H (70-110) mg/dL Hemoglobin A1c (<=6.0) % Triglycerides (0.00-149.00) mg/dL Cholesterol (0.00-200.00) mg/dL LDL Cholesterol, Calc (0.0-131.0) mg/dL VLDL Cholesterol, Calc (5.00-40.00) mg/dL HDL Cholesterol (40.00-60.00) mg/dL Folate 34.10 H (4.40-31.00) ng/mL Assessment and Plan Assessment: * Probable TIA. Patient had mild expressive aphasia for an hour, although patient's daughter believes she has been complaining for last couple days. Current NIH stroke scale is 0. Patient not a candidate for TPA. * Hypertension * New onset diabetes * Hyperlipidemia * Mild cognitive impairment Plan: * MRI of the brain without contrast, revealed no evidence of intracranial mass or acute/subacute infarct. Extensive diffuse white matter changes. Correlate for chronic small vessel ischemic disease. I personally reviewed MRI, and agree with the findings. No evidence of acute stroke. * 2-D echo revealed moderately increased left ventricular wall thickness, with EF 55-60%. Negative agitated saline bubble study for [id number] shunt. Mildly dilated left atrium. Mild MR. No embolic source identified. * Carotid Doppler, revealed less than 50% stenosis of bilateral carotid bifurcations. Antegrade flow in both vertebral arteries. * Fasting a.m. lipid panel with cholesterol 244, LDL 132, HDL 61, triglycerides 250. Agree with starting high intensity statins with Lipitor 40 mg. * Hemoglobin A1c 7.6, suggestive of new onset diabetes. Patient started on metformin, dietary consult completed. * B12 659, folate 34.10, TSH 2.17. * Optimize control of blood pressure * Start aspirin. Patient received aspirin 324 mg in the ER. We will maintain on aspirin 81 mg daily. * Telemetry monitoring so far showing sinus rhythm in the 90s, with no other arrhythmia. * DVT prophylaxis: Heparin 5000 units subcu every 8 hours * Recommended aggressive control of stroke risk factors as above. * Patient has mild cognitive impairment. Recommend follow-up with neurologist outpatient for further evaluation. * Neurologically clear for discharge.
[2023-07-08] MEDS: NON FORMULARY DRUG (Mirabegron [Myrbetriq] 50 MG Tab.Er.24h) PO SCH (18:18)
[2023-07-08] MEDS: metFORMIN 500 MG TAB PO SCH ×2 (18:57→18:58)
[2023-07-08] MEDS ORDERED: SODIUM CHLORIDE 0.9% 1,000 ML IV ONE (19:45)
[2023-07-08] MEDS ORDERED: FAMOTIDINE 20 MG TAB PO SCH (21:00)
[2023-07-08] MEDS ORDERED: ATORVASTATIN 40 MG TAB PO SCH (21:00)
[2023-07-08] MEDS ORDERED: FAMOTIDINE 20 MG/2 ML VIAL IV SCH (21:00)
[2023-07-08] MEDS: LORATADINE 10 MG TAB PO SCH (21:39)
[2023-07-08] MEDS ORDERED: SODIUM CHLORIDE 0.9% 1,000 ML IV SCH (22:00)
[2023-07-08 22:28] LABS: Appearance,Urine Cloudy (Clear); Bilirubin,Urine Negative (Negative); Blood,Urine Negative (Negative); Color,Urine Yellow; Glucose,Urine (UA) Negative (Negative); Ketones,Urine Negative (Negative); Leukocyte Esterase,Urine Negative (Negative); Mucus,Urine Rare /hpf; Nitrite,Urine Negative (Negative); Protein,Urine Negative (Negative); RBC,Urine 1 /hpf (0-5); Specific Gravity,Urine 1.028 (1.001-1.035); Squamous Epithelial Cell,Urine 6 /hpf (0-4); Urobilinogen,Urine <2.0 mg/dL (<2.0); WBC,Urine 1 /hpf (0-5)
[2023-07-09] MEDS: metFORMIN 500 MG TAB PO SCH (06:44)
[2023-07-09] MEDS: ARIPiprazole 5 MG TAB PO SCH (10:11)
[2023-07-09] MEDS: HEPARIN SODIUM,PORCINE 5,000 UNIT/ML 1 ML VIAL SQ SCH (10:11)
[2023-07-09] MEDS: NON FORMULARY DRUG (Mirabegron [Myrbetriq] 50 MG Tab.Er.24h) PO SCH (10:11)
[2023-07-09] MEDS: MEMANTINE 5 MG TAB PO SCH (10:11)
[2023-07-09] MEDS: ASPIRIN 81 MG PO SCH (10:11)
[2023-07-09 11:00] VITALS: BP 165/77; PULSE 76; RESP 16; TEMP 97.7
--- NOTE | 2023-07-09 15:43 | P.PN ---
Subjective Progress Note Date: 07/09/23 Patient was seen for a follow-up. Denies any new neurological symptoms Objective - Vital Signs Vital signs: Vital Signs Temp 97.7 F 07/09/23 07:00 Pulse 76 07/09/23 07:00 Resp 16 07/09/23 07:00 BP 165/77 07/09/23 07:00 Pulse Ox 97 07/09/23 07:00 FiO2 Intake & Output 07/08/23 07/09/23 07/09/23 18:59 06:59 18:59 Intake Total 354 240 Balance 354 240 Weight 102.058 kg Intake: Oral 354 240 Other: Voiding Method Diaper # Voids 2 2 - Exam Patient is alert and awake in no distress. Patient is fully oriented, knows it is 07/09/2023 and that she is in [facility] in [place]. Her speech and language functions appears normal. Patient can name most of the objects although sometimes she has word finding difficulty. For the earlobe, patient said "eardrum". She had to think about naming knuckles. Patient has tremors at rest noted in both hands. Tone is normal. She appears slightly bradykinetic. Muscle strength appears normal. - Labs CBC & Chem 7: 07/08/23 03:51 07/08/23 03:51 Labs: Abnormal Lab Results - Last 24 Hours (Table) 07/08/23 07/08/23 07/08/23 Range/Units 07:25 15:44 21:07 POC Glucose (mg/dL) 177 H (70-110) mg/dL Folate 34.10 H (4.40-31.00) ng/mL Urine Appearance Cloudy H (Clear) Ur Squamous Epith Cells 6 H (0-4) /hpf Urine Mucus Rare H (None) /hpf Assessment and Plan Assessment: * Probable TIA. Patient had mild expressive aphasia for an hour, although patient's daughter believes she has been complaining for last couple days. Current NIH stroke scale is 0. Patient not a candidate for TPA. * Hypertension * New onset diabetes * Hyperlipidemia * Mild cognitive impairment * Possible drug-induced parkinsonism. Patient has mild tremors at rest, slight bradykinesia. Patient is on Abilify 2.5 mg daily. Plan: * MRI of the brain without contrast, revealed no evidence of intracranial mass or acute/subacute infarct. Extensive diffuse white matter changes. Correlate for chronic small vessel ischemic disease. I personally reviewed MRI, and agree with the findings. No evidence of acute stroke. * 2-D echo revealed moderately increased left ventricular wall thickness, with EF 55-60%. Negative agitated saline bubble study for [id number] shunt. Mildly dilated left atrium. Mild MR. No embolic source identified. * Carotid Doppler, revealed less than 50% stenosis of bilateral carotid bifurcations. Antegrade flow in both vertebral arteries. * Fasting a.m. lipid panel with cholesterol 244, LDL 132, HDL 61, triglycerides 250. Agree with starting high intensity statins with Lipitor 40 mg. * Hemoglobin A1c 7.6, suggestive of new onset diabetes. Patient started on m etformin, dietary consult completed. * B12 659, folate 34.10, TSH 2.17. * Optimize control of blood pressure * Start aspirin. Patient received aspirin 324 mg in the ER. We will maintain on aspirin 81 mg daily. * Telemetry monitoring so far showing sinus rhythm in the 90s, with no other arrhythmia. 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 Patient was recommended to discuss with her primary physician about stopping Abilify. * Recommended aggressive control of stroke risk factors as above. * Patient has mild cognitive impairment. Recommend follow-up with neurologist outpatient for further evaluation. * Neurologically clear for discharge.
--- NOTE | 2023-07-11 04:52 | P.DS ---
Providers Date of admission: 07/07/23 14:18 Attending physician: Eloy Martini MD Consults: 07/07/23 14:18 Consult Physician Routine Consulting Provider: Gael Perkins Consult Reason/Comments: intermittent aphasia x multiple days Do you want consulting provider notified?: Yes Primary care physician: [facility] Course: Diagnoses Transient ischemic attack with mild expressive aphasia that's improved now New-onset diabetes mellitus Nodule needs to be checked as an outpatient Obesity with BMI of 35.2 Sleep apnea Diagnoses: This is a pleasant 73 years old female with multiple medical problems as below. Presents because of transient period of expressive aphasia that lasted for about an hour associated with little headache and lightheadedness. This morning patient says that her speech is back to normal, she doesn't have headache or any event upon discharge. Also patient is walking at this, and confirms she does not need any physical therapy. Has been evaluated by neurologist and she underwent extensive workup including MRI of the brain which was negative for acute process, carotid Doppler's which was negative for significant carotid artery stenosis and echocardiogram showed ejection fraction of 55-60% with negative bubble study. Labs remained stable and vitals stable. She has evidence of new onset diabetes mellitus, patient was informed and she was started on metformin with recommendation for outpatient follow-up and she agrees Also there was an incidental finding of thyroid nodule and patient was such was referred to candy attendant as an outpatient and she verbalized understanding and acceptance. Risks including but not limited to cancer are explained. TSH was within the reference range. The patient is asymptomatic. Patient is back to baseline and she agrees to go home today. Was cleared for discharge by neurology service. Patient will be discharged on aspirin 81 mg daily with risks and benefits are explained for the patient and she is agreeable. Problems and management plan were discussed with the patient and he verbalized understanding and acceptance Patient was found stable and can be discharged home in guarded prognosis however he needs follow-up as an outpatient. Patient was instructed to follow up with PCP within one week and patient agrees He was instructed to follow up with candy attendant Dr. Martini or Dr. Werner in 1 week after discharge for her thyroid nodule on diabetes mellitus and she agrees Physical exam Gen: patient is a AAOx3, no distress CVS: S1-S2, RRR, no murmur Lungs: B/L CTA, no wheezing Abdomen: soft, no distention, no tenderness, positive bowel sounds Extremity: no leg edema or induration Time spent more than 35 minutes Patient Condition at Discharge: Stable Plan - Discharge Summary New Discharge Prescriptions: New Atorvastatin [Lipitor] 40 mg PO HS #30 tab Aspirin 81 mg PO DAILY #30 tab metFORMIN HCL [Glucophage] 500 mg PO BID-W/MEALS #60 tab Continue traMADol HCL/ACETAMINOPHEN [Ultracet 37.5-325] 1 tab PO BID PRN PRN Reason: Pain Mirabegron [Myrbetriq] 50 mg PO DAILY LORazepam [Ativan] 0.5 mg PO BID Cetirizine HCl [Zyrtec] 10 mg PO HS Vitamin B Complex 2 cap PO DAILY ARIPiprazole [Abilify] 2.5 mg PO DAILY Albuterol Sulfate [Albuterol Sulfate Hfa] 2 puff PO RT-Q4H PRN PRN Reason: Shortness Of Breath Shaklee Vitamin 2 tab PO DAILY Memantine HCl [Namenda] 5 mg PO DAILY No Action Cephalexin [Keflex] 250 mg PO DAILY Discharge Medication List ARIPiprazole [Abilify] 2.5 mg PO DAILY 07/07/23 [History] Albuterol Sulfate [Albuterol Sulfate Hfa] 2 puff PO RT-Q4H PRN 07/07/23 [History] Cephalexin [Keflex] 250 mg PO DAILY 07/07/23 [History] Cetirizine HCl [Zyrtec] 10 mg PO HS 07/07/23 [History] LORazepam [Ativan] 0.5 mg PO BID 07/07/23 [History] Memantine HCl [Namenda] 5 mg PO DAILY 07/07/23 [History] Mirabegron [Myrbetriq] 50 mg PO DAILY 07/07/23 [History] Shaklee Vitamin 2 tab PO DAILY 07/07/23 [History] Vitamin B Complex 2 cap PO DAILY 07/07/23 [History] traMADol HCL/ACETAMINOPHEN [Ultracet 37.5-325] 1 tab PO BID PRN 07/07/23 [History] Aspirin 81 mg PO DAILY #30 tab 07/09/23 [Rx] Atorvastatin [Lipitor] 40 mg PO HS #30 tab 07/09/23 [Rx] metFORMIN HCL [Glucophage] 500 mg PO BID-W/MEALS #60 tab 07/09/23 [Rx] Follow up Appointment(s)/Referral(s): Thuan Werner MD [REFERRING] - 1 Week ([facility] for your thyroid nodule) Connor Hernandez MD [Primary Care Provider] - 1-2 days Matilde Martini [STAFF PHYSICIAN] - 1 Week ([facility] S[facility]cer for your thyroid nodule) Filomena Arevalo MD [Medical Doctor] - 2 Weeks (neurologist ) Patient Instructions/Handouts: Aphasia (DC), Diabetes and Nutrition (DC) Activity/Diet/Wound Care/Special Instructions: Heart healthy diet Activity is restricted till you see your doctor Discharge Disposition: HOME WITH HOME HEALTH SERVICES
== END 2023-07-09 14:49 | disposition home health service (06) ==
LOC: SUPCPDRO 10:59 → EC 10:59 → 6NMEDSUR 14:18
PROVIDERS: ADMIT Internal Medicine; ATTEND Internal Medicine
DX: G45.9 Transient cerebral ischemic attack, unspecified (principal); E11.9 Type 2 diabetes mellitus without complications; E66.9 Obesity, unspecified; Z68.35 Body mass index [BMI] 35.0-35.9, adult; G47.30 Sleep apnea, unspecified; E04.1 Nontoxic single thyroid nodule; I10 Essential (primary) hypertension; E78.5 Hyperlipidemia, unspecified; F03.90 Unspecified dementia, unspecified severity, without behavioral disturbance, psychotic disturbance, mood disturbance, and anxiety; R25.1 Tremor, unspecified; R25.8 Other abnormal involuntary movements; Z79.899 Other long term (current) drug therapy; Z88.2 Allergy status to sulfonamides
CPT/HCPCS: 96372 ×3; 96360; 99285; 36415; 94760; 93005; 80061; 80053; 80048; 84443; 82607; 82140; 82746; 85025 ×2; 85610; 85730; 81001 ×2; 80306; 83036; 71046; 93880; 70450; 70551; G0378 ×3; C8929; J1644 ×3; 93306

== ENCOUNTER 2023-09-12 15:29 | Emergency (ER) | payer MEDICARE, OTHER ==
[2023-09-12 15:47] VITALS: TEMP 98.2
--- NOTE | 2023-09-12 16:10 | ED ---
General Adult HPI - General Chief complaint: Abdominal Pain Stated complaint: abd pain Time Seen by Provider: 09/12/23 15:30 Source: EMS Mode of arrival: EMS Limitations: altered mental status - History of Present Illness Initial comments: Dictation was produced using barcoo dictation software. please excuse any grammatical, word or spelling errors. Chief Complaint: 73-year-old female presents with several days of nausea History of Present Illness: Patient 73-year-old female she reports that she is here for nausea. Brought in by EMS. Patient denies any pain complaints. She states that she feels nauseated but has no vomiting. No fever chills or night sweats. Denies any chest pain or shortness of breath. Denies sensation of the room spinning. No vision changes or vision loss. Patient has no other complaints. The ROS documented in this emergency department record has been reviewed and confirmed by me. Those systems with pertinent positive or negative responses have been documented in the HPI. All other systems are other negative and/or noncontributory. - Related Data Home Medications Medication Instructions Recorded Confirmed ARIPiprazole [Abilify] 2.5 mg PO DAILY@0800 07/07/23 09/12/23 Albuterol Sulfate [Albuterol 2 puff PO RT-Q4H PRN 07/07/23 09/12/23 Sulfate Hfa] Cephalexin [Keflex] 250 mg PO DAILY@0807/07/23 09/12/23 Cetirizine HCl [Zyrtec] 10 mg PO HS@199907/07/23 09/12/23 LORazepam [Ativan] 0.5 mg PO BID@07/07/23 09/12/23 Memantine HCl [Namenda] 5 mg PO DAILY@0800 07/07/23 09/12/23 Mirabegron [Myrbetriq] 50 mg PO DAILY@0800 07/07/23 09/12/23 Shaklee Vitamin 2 tab PO DAILY@0800 07/07/23 09/12/23 Vitamin B Complex 2 cap PO DAILY@0800 07/07/23 09/12/23 traMADol HCL/ACETAMINOPHEN 1 tab PO BID PRN 07/07/23 09/12/23 [Ultracet 37.5-325] Acetaminophen Tab [Tylenol] 650 mg PO Q4H PRN 09/12/23 09/12/23 Aspirin 81 mg PO DAILY@0800 09/12/23 09/12/23 Atorvastatin [Lipitor] 40 mg PO HS@199909/12/23 09/12/23 Ondansetron [Zofran] 4 mg PO TID PRN 09/12/23 09/12/23 Previous Rx's Medication Instructions Recorded metFORMIN HCL [Glucophage] 500 mg PO BID-W/MEALS #60 tab 07/09/23 Allergies Allergy/AdvReac Type Severity Reaction Status Date / Time Sulfa (Sulfonamide Allergy Unknown Verified 09/12/23 17:45 Antibiotics) Review of Systems ROS Statement: Those systems with pertinent positive or pertinent negative responses have been documented in the HPI. ROS Other: All systems not noted in ROS Statement are negative. Past Medical History Past Medical History: Dementia, Diabetes Mellitus, Hyperlipidemia History of Any Multi-Drug Resistant Organisms: None Reported Past Surgical History: Unable to Obtain Past Psychological History: No Psychological Hx Reported Smoking Status: Never smoker Past Alcohol Use History: None Reported Past Drug Use History: None Reported General Exam - General Exam Comments Initial Comments: PHYSICAL EXAM: General Impression: Alert and oriented x3, not in acute distress HEENT: Normocephalic atraumatic, extra-ocular movements intact, pupils equal and reactive to light bilaterally, mucous membranes moist. Cardiovascular: Heart regular rate and rhythm Chest: Able to complete full sentences, no retractions, no tachypnea Abdomen: abdomen soft, non-tender, non-distended, no organomegaly Musculoskeletal: Pulses present and equal in all extremities, no peripheral edema Motor: no focal deficits noted Neurological: CN II-XII grossly intact, no focal motor or sensory deficits noted Skin: Intact with no visualized rashes Psych: Normal affect and mood Limitations: altered mental status Course Vital Signs 09/12/23 15:30 Temperature 98.2 F Pulse Rate 86 Respiratory 18 Rate Blood Pressure 130/79 O2 Sat by Pulse 98 Oximetry EKG Findings - EKG Comments: EKG Findings:: My EKG interpretation: Ventricular rate 86, sinus rhythm,. 143, QRS 106, QTc 414. No AK prolongation, no QTC prolongation, no ST or T-wave changes noted. Overall, this EKG is unremarkable Medical Decision Making - Medical Decision Making Was pt. sent in by a medical professional or institution (, PA, FABRIC WORKER SUPERVISOR, urgent care, hospital, or [place] health care facility...) When possible be specific @ -No Did you speak to anyone other than the patient for history (EMS, parent, family, police, friend...)? What history was obtained from this source @ -No Did you review nursing and triage notes (agree or disagree)? Why? @ -I reviewed and agree with nursing and triage notes Were old charts reviewed (outside hosp., previous admission, EMS record, old EKG, old radiological studies, urgent care reports/EKG's, [place] health care facility records)? Report findings @ -No old charts were reviewed Differential Diagnosis (chest pain, altered mental status, abdominal pain women, abdominal pain men, vaginal bleeding, musculoskeletal, weakness, fever, dyspnea, syncope, headache, dizziness, GI bleed, back pain, seizure, CVA, palp atations, mental health)? @ -Differential Abdominal Pain Women: Appendicitis, Cholecystitis, diverticulosis, ischemic bowel, pancreatitis, hepatitis, UTI, gastroenteritis, AAA, incarcerated hernia, bowel obstruction, constipation, inflammatory bowel, hepatitis, peptic ulcer disease, splenic infarction, perforated viscus, vulvitis, ovarian torsion, PID, kidney stone, placenta abruption, this is not meant to be an all-inclusive list EKG interpreted by me (3pts min.). @ -See above X-rays interpreted by me (1pt min.). @ -None done CT interpreted by me (1pt min.). @ -CT scan of the abdomen pelvis shows no acute processes U/S interpreted by me (1pt. min.). @ -None done What testing was considered but not performed or refused? (CT, X-rays, U/S, labs)? Why? @ -None What meds were considered but not given or refused? Why? @ -None Did you discuss the management of the patient with other professionals (professionals i.e. , OSWALD, FABRIC WORKER SUPERVISOR, lab, RT, psych nurse, social science teacher, wheel fitter, teacher, fisheries enforcement officer, director of casework)? Give summary @ -No Was smoking cessation discussed for >3mins.? @ -No Was critical care preformed (if so, how long)? @ -No Were there social determinants of health that impacted care today? How? (Homelessness, low income, unemployed, alcoholism, drug addiction, flores sportation, low edu. Level, literacy, decrease access to med. care, usp, rehab)? @ -No Was there de-escalation of care discussed even if they declined (Discuss DNR or withdrawal of care, Hospice)? DNR status @ -No What co-morbidities impacted this encounter? (DM, HTN, Smoking, COPD, CAD, Cancer, CVA, ARF, Chemo, Hep., AIDS, mental health diagnosis, sleep apnea, morbid obesity)? @ -None Was patient admitted / discharged? Hospital course, mention meds given and route, prescriptions, significant lab abnormalities, going to OR and other pertinent info. @ -73-year-old female presents emergency department chief complaint of nausea. She did report to the nurse that she did have some abdominal pain. Vital signs stable. Abdominal exam is otherwise benign. Laboratory evaluation shows initial lactic acid level 2.3. Rest of labs within acceptable limits. Viral testing is negative. CT scan was obtained showing likely incidental finding of left kidney mass suspicious for renal cell carcinoma. Patient was notified of these results she told that she should follow-up closely with urology for further workup. Also told that she h has a incidental finding of pulmonary nodule. Patient reevaluated bedside 8:20 PM found to be stable condition. Patient be discharged. Undiagnosed new problem with uncertain prognosis? @ -No Drug Therapy requiring intensive monitoring for toxicity (Heparin, Nitro, Insulin, Cardizem)? @ -No Were any procedures done? @ -No Diagnosis/symptom? Acute, or Chronic, or Acute on Chronic? Uncomplicated (without systemic symptoms) or Complicated (systemic symptoms)? @ -Nausea, no obvious source, incidentaloma Side effects of treatment? @ -No Exacerbation, Progression, or Severe Exacerbation? @ -No Poses a threat to life or bodily function? How? (Chest pain, [place], [place], pneumonia, PE, COPD, DKA, ARF, appy, cholecystitis, CVA, Diverticulitis, Homicidal, Suicidal, threat to staff... and all critical care pts) @ -yes - Lab Data Result diagrams: 09/12/23 16:37 09/12/23 16:37 Lab Results 09/12/23 09/12/23 09/12/23 Range/Units 16:37 16:37 16:37 WBC 11.0 H (3.8-10.6) k/uL RBC 4.92 (3.80-5.40) m/uL Hgb 14.5 (11.4-16.0) gm/dL Hct 43.6 (34.0-46.0) % MCV 88.6 (80.0-100.0) fL MCH 29.4 (25.0-35.0) pg MCHC 33.2 (31.0-37.0) g/dL RDW 13.5 (11.5-15.5) % Plt Count 263 (150-450) k/uL MPV 7.6 Neutrophils % 67 % Lymphocytes % 21 % Monocytes % 5 % Eosinophils % 4 % Basophils % 1 % Neutrophils # 7.4 (1.3-7.7) k/uL Lymphocytes # 2.3 (1.0-4.8) k/uL Monocytes # 0.6 (0-1.0) k/uL Eosinophils # 0.5 (0-0.7) k/uL Basophils # 0.1 (0-0.2) k/uL Sodium 143 (137-145) mmol/L Potassium 4.6 (3.5-5.1) mmol/L Chloride 103 (98-107) mmol/L Carbon Dioxide 30 (22-30) mmol/L Anion Gap 10 mmol/L BUN 28 H (7-17) mg/dL Creatinine 1.09 H (0.52-1.04) mg/dL Est GFR (CKD-EPI)AfAm 58 (>60 ml/min/1.73 sqM) Est GFR (CKD-EPI)NonAf 50 (>60 ml/min/1.73 sqM) Glucose 96 (74-99) mg/dL Lactic Ac Sepsis Rflx Plasma Lactic Acid Suraj 2.3 H* (0.7-2.0) mmol/L Calcium 10.5 H (8.4-10.2) mg/dL Magnesium 1.8 (1.6-2.3) mg/dL Total Bilirubin 0.8 (0.2-1.3) mg/dL AST 25 (14-36) U/L ALT 24 (4-34) U/L Alkaline Phosphatase 68 (38-126) U/L Total Protein 7.2 (6.3-8.2) g/dL Albumin 4.5 (3.5-5.0) g/dL Urine Color Urine Appearance (Clear) Urine pH (5.0-8.0) Ur Specific [place] (1.001-1.035) Urine Protein (Negative) Urine Glucose (UA) (Negative) Urine Ketones (Negative) Urine Blood (Negative) Urine Nitrite (Negative) Urine Bilirubin (Negative) Urine Urobilinogen (<2.0) mg/dL Ur Leukocyte Esterase (Negative) Influenza Type A (PCR) (Not Detectd) Influenza Type B (PCR) (Not Detectd) RSV (PCR) (Not Detectd) SARS-CoV-2 (PCR) (Not Detectd) 09/12/23 09/12/23 09/12/23 Range/Units 16:37 17:16 19:01 WBC (3.8-10.6) k/uL RBC (3.80-5.40) m/uL Hgb (11.4-16.0) gm/dL Hct (34.0-46.0) % MCV (80.0-100.0) fL MCH (25.0-35.0) pg MCHC (31.0-37.0) g/dL RDW (11.5-15.5) % Plt Count (150-450) k/uL MPV Neutrophils % % Lymphocytes % % Monocytes % % Eosinophils % % Basophils % % Neutrophils # (1.3-7.7) k/uL Lymphocytes # (1.0-4.8) k/uL Monocytes # (0-1.0) k/uL Eosinophils # (0-0.7) k/uL Basophils # (0-0.2) k/uL Sodium (137-145) mmol/L Potassium (3.5-5.1) mmol/L Chloride (98-107) mmol/L Carbon Dioxide (22-30) mmol/L Anion Gap mmol/L BUN (7-17) mg/dL Creatinine (0.52-1.04) mg/dL Est GFR (CKD-EPI)AfAm (>60 ml/min/1.73 sqM) Est GFR (CKD-EPI)NonAf (>60 ml/min/1.73 sqM) Glucose (74-99) mg/dL Lactic Ac Sepsis Rflx Y Plasma Lactic Acid Suraj (0.7-2.0) mmol/L Calcium (8.4-10.2) mg/dL Magnesium (1.6-2.3) mg/dL Total Bilirubin (0.2-1.3) mg/dL AST (14-36) U/L ALT (4-34) U/L Alkaline Phosphatase (38-126) U/L Total Protein (6.3-8.2) g/dL Albumin (3.5-5.0) g/dL Urine Color Yellow Urine Appearance Clear (Clear) Urine pH 5.5 (5.0-8.0) Ur Specific [place] 1.046 H (1.001-1.035) Urine Protein Negative (Negative) Urine Glucose (UA) Negative (Negative) Urine Ketones Negative (Negative) Urine Blood Negative (Negative) Urine Nitrite Negative (Negative) Urine Bilirubin Negative (Negative) Urine Urobilinogen <2.0 (<2.0) mg/dL Ur Leukocyte Esterase Negative (Negative) Influenza Type A (PCR) Not Detected (Not Detectd) Influenza Type B (PCR) Not Detected (Not Detectd) RSV (PCR) Not Detected (Not Detectd) SARS-CoV-2 (PCR) Not Detected (Not Detectd) 09/12/23 Range/Units 19:49 WBC (3.8-10.6) k/uL RBC (3.80-5.40) m/uL Hgb (11.4-16.0) gm/dL Hct (34.0-46.0) % MCV (80.0-100.0) fL MCH (25.0-35.0) pg MCHC (31.0-37.0) g/dL RDW (11.5-15.5) % Plt Count (150-450) k/uL MPV Neutrophils % % Lymphocytes % % Monocytes % % Eosinophils % % Basophils % % Neutrophils # (1.3-7.7) k/uL Lymphocytes # (1.0-4.8) k/uL Monocytes # (0-1.0) k/uL Eosinophils # (0-0.7) k/uL Basophils # (0-0.2) k/uL Sodium (137-145) mmol/L Potassium (3.5-5.1) mmol/L Chloride (98-107) mmol/L Carbon Dioxide (22-30) mmol/L Anion Gap mmol/L BUN (7-17) mg/dL Creatinine (0.52-1.04) mg/dL Est GFR (CKD-EPI)AfAm (>60 ml/min/1.73 sqM) Est GFR (CKD-EPI)NonAf (>60 ml/min/1.73 sqM) Glucose (74-99) mg/dL Lactic Ac Sepsis Rflx Plasma Lactic Acid Suraj 1.1 (0.7-2.0) mmol/L Calcium (8.4-10.2) mg/dL Magnesium (1.6-2.3) mg/dL Total Bilirubin (0.2-1.3) mg/dL AST (14-36) U/L ALT (4-34) U/L Alkaline Phosphatase (38-126) U/L Total Protein (6.3-8.2) g/dL Albumin (3.5-5.0) g/dL Urine Color Urine Appearance (Clear) Urine pH (5.0-8.0) Ur Specific [place] (1.001-1.035) Urine Protein (Negative) Urine Glucose (UA) (Negative) Urine Ketones (Negative) Urine Blood (Negative) Urine Nitrite (Negative) Urine Bilirubin (Negative) Urine Urobilinogen (<2.0) mg/dL Ur Leukocyte Esterase (Negative) Influenza Type A (PCR) (Not Detectd) Influenza Type B (PCR) (Not Detectd) RSV (PCR) (Not Detectd) SARS-CoV-2 (PCR) (Not Detectd) Disposition Clinical Impression: Nausea Disposition: HOME SELF-CARE Condition: Good Instructions (If sedation given, give patient instructions): Acute Nausea and Vomiting (DC) Additional Instructions: There were a pair of incidental finding seen on your CT. You have a pulmonary nodule that needs to be evaluated and followed by her primary care doctor. There also is a mass on your left kidney suspicious for cancerous process. You are given referral to urology for follow up Is patient prescribed a controlled substance at d/c from ED?: No Referrals: Connor Hernandez MD [Primary Care Provider] - 1-2 days Tip Jay MD [STAFF PHYSICIAN] - 1-2 days Time of Disposition: 20:22
[2023-09-12] MEDS: ONDANSETRON 4 MG/2 ML VIAL IVP STA (16:41)
[2023-09-12] MEDS: SODIUM CHLORIDE 0.9% 1,000 ML IV STA (16:41)
[2023-09-12 17:01] LABS: Basophils # (A) 0.1 k/uL (0-0.2); Basophils % (A) 1 %; Eosinophils # (A) 0.5 k/uL (0-0.7); Eosinophils % (A) 4 %; HCT 43.6 % (34.0-46.0); HGB 14.5 gm/dL (11.4-16.0); Lymphocytes # (A) 2.3 k/uL (1.0-4.8); Lymphocytes % (A) 21 %; MCH 29.4 pg (25.0-35.0); MCHC 33.2 g/dL (31.0-37.0); MCV 88.6 fL (80.0-100.0); Mean Platelet Volume 7.6; Monocytes # (A) 0.6 k/uL (0-1.0); Monocytes % (A) 5 %; Neutrophils # (A) 7.4 k/uL (1.3-7.7); Neutrophils % (A) 67 %; Platelet Count 263 k/uL (150-450); RBC 4.92 m/uL (3.80-5.40); RDW 13.5 % (11.5-15.5)
[2023-09-12 17:09] LABS: ALT 24 U/L (4-34); AST 25 U/L (14-36); African American GFR (CKD) 58 (>60 ml/min/1.73 sqM); Albumin 4.5 g/dL (3.5-5.0); Alkaline Phosphatase 68 U/L (38-126); Anion Gap 10 mmol/L; Blood Urea Nitrogen 28 mg/dL (7-17); Calcium 10.5 mg/dL (8.4-10.2); Carbon Dioxide 30 mmol/L (22-30); Chloride 103 mmol/L (98-107); Glucose 96 mg/dL (74-99); Magnesium 1.8 mg/dL (1.6-2.3); Non-African American GFR(CKD) 50 (>60 ml/min/1.73 sqM); Potassium 4.6 mmol/L (3.5-5.1); Sodium 143 mmol/L (137-145); Total Bilirubin 0.8 mg/dL (0.2-1.3); Total Protein 7.2 g/dL (6.3-8.2)
--- NOTE | 2023-09-12 18:28 | CT ---
EXAMINATION TYPE: CT abdomen pelvis w con DATE OF EXAM: 09/12/2023 COMPARISON: NONE HISTORY: 73-year-old female Abdominal pain, nausea, and weakness x2wks. TECHNIQUE: Contiguous axial scanning of the abdomen and pelvis following administration of 100 ml Iso cruz 300 IV contrast. Delayed images through the kidneys and coronal/sagittal reconstructions perform ed. CT DLP: 1319 mGycm Automated exposure control for dose reduction was used. FINDINGS: Heart and lungs are normal in size. Three-vessel coronary artery calcifications are present . No pericardial effusion. 5 mm right basilar pulmonary nodule should be reassessed at follow-up. No pleural effusion. No focal liver lesion or biliary ductal dilatation. Portal venous system is patent. Cholecystectomy c lips. Adrenal glands and mildly atrophic pancreas and no gross abnormality. There appears to be a diverticulum extending posteriorly along the third portion of the duodenum blanca uring up to 4.8 cm wide. 3.5 cm cortical cyst lateral right kidney. Suspicious solid enhancing mass posterior upper pole left kidney measuring 2.3 cm. Findings suspicious for RCC. No dilated small bowel, free fluid, or free air. No mesenteric or retroperitoneal lymphadenopathy. Moderate atherosclerotic calcifications abdominal aorta. Mild fusiform dilatation infrarenal abdomina l aorta to 2.3 cm. Generalized colonic diverticulosis. No pericolonic inflammatory change. Bladder is nondistended. Pelvic floor relaxation. Status post hysterectomy. Small bilateral ovaries a re seen. Pelvic phleboliths. No abnormal fluid collection in the pelvis or pelvic lymphadenopathy. Bones: Mild to moderate degenerative change in both hips. Hypertrophic facet arthropathy mid to lower lumbar spine with grade 1 anterolisthesis L4-L5. No osseous structure process. IMPRESSION: 1. NOTE A 2.3 CM MASS POSTERIOR UPPER POLE LEFT KIDNEY HIGHLY SUGGESTIVE OF RCC. APPROPRIATE UROLOGY FOLLOW-UP AND MANAGEMENT ADVISED. 2. A NONSPECIFIC 5 MM RIGHT BASILAR PULMONARY NODULE. FOLLOW-UP CT CHEST IN 3 MONTHS TO REASSESS AND ALSO TO SURVEY THE REMAINDER OF THE LUNGS. 3. GENERALIZED COLONIC DIVERTICULOSIS WITHOUT ACUTE DIVERTICULITIS. 4. PELVIC FLOOR RELAXATION. STATUS POST HYSTERECTOMY.
[2023-09-12 19:52] LABS: Appearance,Urine Clear (Clear); Bilirubin,Urine Negative (Negative); Blood,Urine Negative (Negative); Color,Urine Yellow; Glucose,Urine (UA) Negative (Negative); Ketones,Urine Negative (Negative); Leukocyte Esterase,Urine Negative (Negative); Nitrite,Urine Negative (Negative); PH, Urine 5.5 (5.0-8.0); Protein,Urine Negative (Negative); Urobilinogen,Urine <2.0 mg/dL (<2.0)
[2023-09-12 20:11] LABS: Specific Gravity,Urine 1.046 (1.001-1.035)
[2023-09-12 20:52] VITALS: BP 146/91; PULSE 72; RESP 16
== END 2023-09-12 21:07 | disposition home or self-care (01) ==
LOC: EC 15:29
DX: R11.0 Nausea (principal); R10.9 Unspecified abdominal pain; R91.1 Solitary pulmonary nodule; E11.9 Type 2 diabetes mellitus without complications; E78.5 Hyperlipidemia, unspecified; F03.90 Unspecified dementia, unspecified severity, without behavioral disturbance, psychotic disturbance, mood disturbance, and anxiety; Z20.822 Contact with and (suspected) exposure to COVID-19; Z79.82 Long term (current) use of aspirin; Z79.899 Other long term (current) drug therapy; Z88.2 Allergy status to sulfonamides
CPT/HCPCS: 36415; 93005; 80053; 83605; 83735; 85025; 81003; 87636; 74177; 99284; 96374; 96361 ×3; J2405; Q9967

== ENCOUNTER 2024-10-14 04:05 | Inpatient (IN) | payer MEDICARE, OTHER ==
[2024-10-14 04:18] LABS: Glucose,Whole Blood 193 mg/dL (70-110)
--- NOTE | 2024-10-14 04:19 | ED ---
General Adult HPI - General Chief complaint: Altered Mental Status Stated complaint: Neuro Symptoms Time Seen by Provider: 10/14/24 04:07 Source: patient, EMS Mode of arrival: EMS - History of Present Illness Initial comments: Dictation was produced using Retrace dictation software. please excuse any grammatical, word or spelling errors. Chief Complaint: 74-year-old presents to the ER for altered mental status History of Present Illness: 74-year-old female presents to the ER for strokelike symptoms. Patient allegedly was awake at 3:00 AM. She was asking for a bowl of cereal like she normally does when all of a [facility] staff noted she had left-sided facial droop. She was also found to be altered. At baseline she is ANO x 4. EMS was called for concerns of acute CVA. She takes anticoagulation medications. EMS stated that the facial droop resolved en route to the ER however she still remained altered. Unable to obtain ROS secondary mental status - Related Data Home Medications Medication Instructions Recorded Confirmed ARIPiprazole [Abilify] 2.5 mg PO DAILY@79907/07/23 09/12/23 Albuterol Sulfate [Albuterol 2 puff PO RT-Q4H PRN 07/07/23 09/12/23 Sulfate Hfa] Cephalexin [Keflex] 250 mg PO DAILY@79907/07/23 09/12/23 Cetirizine HCl [Zyrtec] 10 mg PO HS@199907/07/23 09/12/23 LORazepam [Ativan] 0.5 mg PO BID@07/07/23 09/12/23 Memantine HCl [Namenda] 5 mg PO DAILY@79907/07/23 09/12/23 Mirabegron [Myrbetriq] 50 mg PO DAILY@79907/07/23 09/12/23 Shaklee Vitamin 2 tab PO DAILY@79907/07/23 09/12/23 Vitamin B Complex 2 cap PO DAILY@00 07/07/23 09/12/23 traMADol HCL/ACETAMINOPHEN 1 tab PO BID PRN 07/07/23 09/12/23 [Ultracet 37.5-325] Acetaminophen Tab [Tylenol] 650 mg PO Q4H PRN 09/12/23 09/12/23 Aspirin 81 mg PO DAILY@0800 09/12/23 09/12/23 Atorvastatin [Lipitor] 40 mg PO HS@2000 09/12/23 09/12/23 Ondansetron [Zofran] 4 mg PO TID PRN 09/12/23 09/12/23 Previous Rx's Medication Instructions Recorded metFORMIN HCL [Glucophage] 500 mg PO BID-W/MEALS #60 tab 07/09/23 Allergies Allergy/AdvReac Type Severity Reaction Status Date / Time Sulfa (Sulfonamide Allergy Unknown Verified 10/14/24 04:10 Antibiotics) Review of Systems ROS Statement: Those systems with pertinent positive or pertinent negative responses have been documented in the HPI. ROS Other: All systems not noted in ROS Statement are negative. Past Medical History Past Medical History: Dementia, Diabetes Mellitus, Hyperlipidemia History of Any Multi-Drug Resistant Organisms: None Reported Past Surgical History: Unable to Obtain Additional Past Surgical History / Comment(s): possible cholecystectomy, Past Psychological History: No Psychological Hx Reported Smoking Status: Never smoker Past Alcohol Use History: None Reported Past Drug Use History: None Reported General Exam - General Exam Comments Initial Comments: PHYSICAL EXAM: General Impression: Alert and oriented x1, following commands HEENT: Normocephalic atraumatic, extra-ocular movements intact, pupils equal and reactive to light bilaterally, mucous membranes moist. Cardiovascular: Heart regular rate and rhythm Chest: Able to complete full sentences, no retractions, no tachypnea Abdomen: abdomen soft, non-tender, non-distended, no organomegaly Musculoskeletal: Pulses present and equal in all extremities, no peripheral edema Motor: no focal deficits noted Neurological: CN II-XII grossly intact, face is symmetrical, NIH score of 8 right upper extremity drift, right lower extremity drift, right-sided hemineglect, aphasic Skin: Intact with no visualized rashes Course Vital Signs 10/14/24 10/14/24 10/14/24 04:06 04:30 05:04 Temperature 98.0 F Pulse Rate 98 96 95 Respiratory 18 20 18 Rate Blood Pressure 184/105 144/85 142/99 O2 Sat by Pulse 96 86 L 95 Oximetry 10/14/24 05:31 Temperature Pulse Rate 86 Respiratory 18 Rate Blood Pressure 114/84 O2 Sat by Pulse 95 Oximetry - Reevaluation(s) Reevaluation #1: 03/24/25 04:19 Code stroke paged due to last known well approximately 3:00 AM. Patient not a candidate for thrombolytics due to history of anticoagulation use. Case discussed with Dr. Malhotra, stroke neurology EKG Findings - EKG Comments: EKG Findings:: My EKG interpretation: Ventricular rate 5, sinus rhythm, peer interval 145, QRS 90, QTc 419. No TX prolongation, no QTC prolongation, no ST or T-wave changes noted. EKG compared to October 08, 2024 showing similar findings Medical Decision Making - Medical Decision Making Was pt. sent in by a medical professional or institution (, PA, COACH OPERATOR, urgent care, hospital, or long term...) When possible be specific @ -No Did you speak to anyone other than the patient for history (EMS, parent, family, police, friend...)? What history was obtained from this source @ -See above Did you review nursing and triage notes (agree or disagree)? Why? @ -I reviewed and agree with nursing and triage notes Were old charts reviewed (outside hosp., previous admission, EMS record, old EKG, old radiological studies, urgent care reports/EKG's, long term records)? Report findings @ -No old charts were reviewed Differential Diagnosis (chest pain, altered mental status, abdominal pain women, abdominal pain men, vaginal bleeding, musculoskeletal, weakness, fever, dyspnea, syncope, headache, dizziness, GI bleed, back pain, seizure, CVA, palpatations, mental health)? @ -Differential Altered Mental Status: Hypoglycemia, DKA, hypercapnia, ETOH, overdose, CO poisoning, trauma, myxedema coma, HTN encephalopathy, infection, encephalitis, psychosis, intercranial hemorrhage, hepatic encephalopathy, meningitis, CVA, this is not meant to be an all-inclusive list EKG interpreted by me (3pts min.). @ -See above X-rays interpreted by me (1pt min.). @ -Chest x-ray is nonacute CT interpreted by me (1pt min.). @ -CT brain CT angiography head and neck shows no acute processes U/S interpreted by me (1pt. min.). @ -None done What testing was considered but not performed or refused? (CT, X-rays, U/S, labs)? Why? @ -None What meds were considered but not given or refused? Why? @ -None Was smoking cessation discussed for >3mins.? @ -No Were there social determinants of health that impacted care today? How? (Homelessness, low income, unemployed, alcoholism, drug addiction, transportation, low edu. Level, literacy, decrease access to med. care, correction, rehab)? @ -No Was there de-escalation of care discussed even if they declined (Discuss DNR or withdrawal of care, Hospice)? DNR status @ -No What co-morbidities impacted this encounter? (DM, HTN, Smoking, COPD, CAD, Cancer, CVA, ARF, Chemo, Hep., AIDS, mental health diagnosis, sleep apnea, morbid obesity)? @ -Dementia, diabetes, dyslipidemia Was patient admitted / discharged? Hospital course, mention meds given and route, prescriptions, significant lab abnormalities, going to OR and other pertinent info. @ -74-year-old female presents emergency department for altered mental status. Per EMS they were concerned about stroke. Patient does have elevated NIH score. However she is not a candidate for thrombolytics due to anticoagulation use. Code stroke page. Imaging studies shows no intracranial bleed or large vessel occlusion. Case was discussed with stroke neurologist recommended medical admit for neurology consultation. Laboratory evaluation is unremarka ble. Patient given aspirin will be admitted consultation to neurology. Did you discuss the management of the patient with other professionals (professionals i.e. , PA, COACH OPERATOR, lab, RT, psych nurse, case management social worker, hand box folder, teacher, production officer, insurance case manager)? Give summary @ -Discussed with hospitalist for admission Was critical care preformed (if so, how long)? @ -Yes, 33 minutes for management of acute altered mentation Undiagnosed new problem with uncertain prognosis? @ -No Drug Therapy requiring intensive monitoring for toxicity (Heparin, Nitro, Insulin, Cardizem)? @ -No Were any procedures done? @ -No Diagnosis/symptom? Acute, or Chronic, or Acute on Chronic? Uncomplicated (without systemic symptoms) or Complicated (systemic symptoms)? @ -Code stroke Side effects of treatment? @ -No Exacerbation, Progression, or Severe Exacerbation? @ -No Poses a threat to life or bodily function? How? (Chest pain, USA, MD, pneumonia, PE, COPD, DKA, ARF, appy, cholecystitis, CVA, Diverticulitis, Homicidal, Suicidal, threat to staff... and all critical care pts) @ -yes - Lab Data Result diagrams: 10/14/24 04:07 10/14/24 04:07 Lab Results 10/14/24 10/14/24 10/14/24 Range/Units 04:06 04:07 04:07 WBC 14.6 H (3.8-10.6) k/uL RBC 4.44 (3.80-5.40) m/uL Hgb 12.1 (11.4-16.0) gm/dL Hct 37.8 (34.0-46.0) % MCV 85.1 (80.0-100.0) fL MCH 27.3 (25.0-35.0) pg MCHC 32.1 (31.0-37.0) g/dL RDW 13.6 (11.5-15.5) % Plt Count 292 (150-450) k/uL MPV 8.1 Neutrophils % 79 % Lymphocytes % 11 % Monocytes % 6 % Eosinophils % 2 % Basophils % 0 % Neutrophils # 11.6 H (1.3-7.7) k/uL Lymphocytes # 1.6 (1.0-4.8) k/uL Monocytes # 0.8 (0-1.0) k/uL Eosinophils # 0.3 (0-0.7) k/uL Basophils # 0.1 (0-0.2) k/uL PT 11.3 (10.0-12.5) sec INR 1.0 (<1.2) APTT 21.1 L (22.0-30.0) sec Sodium (137-145) mmol/L Potassium (3.5-5.1) mmol/L Chloride (98-107) mmol/L Carbon Dioxide (22-30) mmol/L Anion Gap mmol/L BUN (7-17) mg/dL Creatinine (0.52-1.04) mg/dL Est GFR (CKD-EPI)AfAm (>60 ml/min/1.73 sqM) Est GFR (CKD-EPI)NonAf (>60 ml/min/1.73 sqM) Glucose (74-99) mg/dL POC Glucose (mg/dL) 193 H (70-110) mg/dL POC Glu Special Officer Automat ID M[employer] Calcium (8.4-10.2) mg/dL Total Bilirubin (0.2-1.3) mg/dL AST (14-36) U/L ALT (4-34) U/L Alkaline Phosphatase (38-126) U/L Creatine Kinase (30-135) U/L Troponin I (0.000-0.034) ng/mL Total Protein (6.3-8.2) g/dL Albumin (3.5-5.0) g/dL 10/14/24 10/14/24 Range/Units 04:07 04:07 WBC (3.8-10.6) k/uL RBC (3.80-5.40) m/uL Hgb (11.4-16.0) gm/dL Hct (34.0-46.0) % MCV (80.0-100.0) fL MCH (25.0-35.0) pg MCHC (31.0-37.0) g/dL RDW (11.5-15.5) % Plt Count (150-450) k/uL MPV Neutrophils % % Lymphocytes % % Monocytes % % Eosinophils % % Basophils % % Neutrophils # (1.3-7.7) k/uL Lymphocytes # (1.0-4.8) k/uL Monocytes # (0-1.0) k/uL Eosinophils # (0-0.7) k/uL Basophils # (0-0.2) k/uL PT (10.0-12.5) sec INR (<1.2) APTT (22.0-30.0) sec Sodium 136 L (137-145) mmol/L Potassium 4.4 (3.5-5.1) mmol/L Chloride 100 (98-107) mmol/L Carbon Dioxide 27 (22-30) mmol/L Anion Gap 9 mmol/L BUN 18 H (7-17) mg/dL Creatinine 0.84 (0.52-1.04) mg/dL Est GFR (CKD-EPI)AfAm 78 (>60 ml/min/1.73 sqM) Est GFR (CKD-EPI)NonAf 68 (>60 ml/min/1.73 sqM) Glucose 202 H (74-99) mg/dL POC Glucose (mg/dL) (70-110) mg/dL POC Glu Special Officer Automat ID Calcium 9.7 (8.4-10.2) mg/dL Total Bilirubin 0.8 (0.2-1.3) mg/dL AST 23 (14-36) U/L ALT 21 (4-34) U/L Alkaline Phosphatase 86 (38-126) U/L Creatine Kinase 22 L (30-135) U/L Troponin I 0.016 (0.000-0.034) ng/mL Total Protein 6.2 L (6.3-8.2) g/dL Albumin 3.8 (3.5-5.0) g/dL Disposition Clinical Impression: CVA (cerebral vascular accident) Disposition: ADMITTED IP TO THIS [facility] Condition: Serious Referrals: Connor Hernandez MD [Primary Care Provider] - 1-2 days Decision Time: 05:33
[2024-10-14 04:21] LABS: Basophils # (A) 0.1 k/uL (0-0.2); Basophils % (A) 0 %; Eosinophils # (A) 0.3 k/uL (0-0.7); Eosinophils % (A) 2 %; HCT 37.8 % (34.0-46.0); HGB 12.1 gm/dL (11.4-16.0); Lymphocytes # (A) 1.6 k/uL (1.0-4.8); Lymphocytes % (A) 11 %; MCH 27.3 pg (25.0-35.0); MCHC 32.1 g/dL (31.0-37.0); MCV 85.1 fL (80.0-100.0); Mean Platelet Volume 8.1; Monocytes # (A) 0.8 k/uL (0-1.0); Monocytes % (A) 6 %; Neutrophils # (A) 11.6 k/uL (1.3-7.7); Neutrophils % (A) 79 %; Platelet Count 292 k/uL (150-450); RBC 4.44 m/uL (3.80-5.40); RDW 13.6 % (11.5-15.5); WBC 14.6 k/uL (3.8-10.6)
[2024-10-14 04:40] LABS: Prothrombin Time 11.3 sec (10.0-12.5)
--- NOTE | 2024-10-14 04:48 | CT ---
EXAM: CT Head Without Intravenous Contrast CLINICAL HISTORY: ITS.REASON CT Reason: Neuro deficit, acute, stroke suspected TECHNIQUE: Axial computed tomography images of the head/brain without intravenous contrast. CTDI is 48.8 mGy and DLP is 1276 mGy-cm. This CT exam was performed using one or more of the following dose reduction techniques: automated exposure control, adjustment of the mA and/or kV according to patient size, and/or use of iterative reconstruction technique. COMPARISON: Prior brain MRI from July 08, 2023. FINDINGS: Brain: Advanced nonspecific white matter changes. No hemorrhage. No significant white matter disease. No edema. Ventricles: Moderate ventriculomegaly. Bones/joints: Unremarkable. No acute fracture. Soft tissues: Unremarkable. Sinuses: Unremarkable as visualized. No acute sinusitis. Mastoid air cells: Unremarkable as visualized. No mastoid effusion. IMPRESSION: No evidence of acute intracranial pathology.
[2024-10-14 04:49] LABS: Partial Thromboplastin Time 21.1 sec (22.0-30.0)
[2024-10-14 04:54] LABS: ALT 21 U/L (4-34); AST 23 U/L (14-36); African American GFR (CKD) 78 (>60 ml/min/1.73 sqM); Albumin 3.8 g/dL (3.5-5.0); Alkaline Phosphatase 86 U/L (38-126); Anion Gap 9 mmol/L; Blood Urea Nitrogen 18 mg/dL (7-17); Calcium 9.7 mg/dL (8.4-10.2); Carbon Dioxide 27 mmol/L (22-30); Chloride 100 mmol/L (98-107); Creatine Kinase 22 U/L (30-135); Glucose 202 mg/dL (74-99); Non-African American GFR(CKD) 68 (>60 ml/min/1.73 sqM); Potassium 4.4 mmol/L (3.5-5.1); Sodium 136 mmol/L (137-145); Total Bilirubin 0.8 mg/dL (0.2-1.3); Total Protein 6.2 g/dL (6.3-8.2)
--- NOTE | 2024-10-14 04:59 | CT ---
EXAM: CT Angiography Head With Intravenous Contrast CLINICAL HISTORY: ITS.REASON CT Reason: Neuro deficit, acute, stroke suspected TECHNIQUE: Axial computed tomographic angiography images of the head with intravenous contrast. CTDI is 17.7 mGy and DLP is 218.8 mGy-cm. This CT exam was performed using one or more of the following dose reduction techniques: automated exposure control, adjustment of the mA and/or kV according to patient size, and/or use of iterative reconstruction technique. MIP reconstructed images were created and reviewed. COMPARISON: No relevant prior studies available. FINDINGS: The dural venous sinuses are patent. Right internal carotid artery: No acute findings. Intracranial segment is patent with no significant stenosis. No aneurysm. Right anterior cerebral artery: Unremarkable. No occlusion or significant stenosis. No aneurysm. Right middle cerebral artery: Unremarkable. No occlusion or significant stenosis. No aneurysm. Right posterior cerebral artery: Unremarkable. No occlusion or significant stenosis. No aneurysm. Right vertebral artery: Unremarkable as visualized. Left internal carotid artery: No acute findings. Intracranial segment is patent with no significant stenosis. No aneurysm. Left anterior cerebral artery: Unremarkable. No occlusion or significant stenosis. No aneurysm. Left middle cerebral artery: Unremarkable. No occlusion or significant stenosis. No aneurysm. Left posterior cerebral artery: Unremarkable. No occlusion or significant stenosis. No aneurysm. Left vertebral artery: Unremarkable as visualized. Basilar artery: Unremarkable. No occlusion or significant stenosis. No aneurysm. IMPRESSION: Negative CT angiogram of the head. EXAM: CT Angiography Neck With Intravenous Contrast CLINICAL HISTORY: ITS.REASON CT Reason: Neuro deficit, acute, stroke suspected TECHNIQUE: Routine carotid CT angiography protocol was performed with intravenous contrast. NASCET criteria using the distal ICAs for comparison were used for evaluation of stenoses. CTDI is 17.7 mGy and DLP is 218.8 mGy-cm. This CT exam was performed using one or more of the following dose reduction techniques: automated exposure control, adjustment of the mA and/or kV according to patient size, and/or use of iterative reconstruction technique. MIP reconstructed images were created and reviewed. COMPARISON: None. FINDINGS: VASCULATURE: Ectasia of the ascending aorta measuring 34.7 mm in diameter. Right common carotid artery: Unremarkable. No occlusion or significant stenosis. No dissection. Right internal carotid artery: Unremarkable. Extracranial segment is patent with no occlusion or significant stenosis. No dissection. Right external carotid artery: Unremarkable. No occlusion. Right vertebral artery: Unremarkable. No occlusion or significant stenosis. No dissection. Left common carotid artery: Unremarkable. No occlusion or significant stenosis. No dissection. Left internal carotid artery: Unremarkable. Extracranial segment is patent with no occlusion or significant stenosis. No dissection. Left external carotid artery: Unremarkable. No occlusion. Left vertebral artery: Unremarkable. No occlusion or significant stenosis. No dissection. NECK: Bones/joints: Unremarkable. No acute fracture. Soft tissues: Prominent mediastinal and hilar left nodes. Bilateral thyroid nodules. Prominent cervical lymph nodes. Lung apices: Bronchitis. CAROTID STENOSIS REFERENCE USING NASCET CRITERIA: % ICA stenosis = (1 - narrowest ICA diameter/diameter of distal cervical ICA) x 100. Mild - <50% stenosis. Moderate - 50-69% stenosis. Severe - 70-94% stenosis. Near occlusion - 95-99% stenosis. Occluded - 100% stenosis. IMPRESSION: Negative CTA neck.
--- NOTE | 2024-10-14 05:10 | XR ---
EXAM: XR Chest, 1 View CLINICAL HISTORY: ITS.REASON XR Reason: altered mental status TECHNIQUE: Frontal view of the chest. COMPARISON: No relevant prior studies available. FINDINGS: Lungs: Unremarkable. No consolidation. Pleural space: Unremarkable. No pneumothorax. Heart: Mild enlargement of the cardiac silhouette. Mediastinum: Unremarkable. Normal mediastinal contour. Bones/joints: Degenerative changes are seen in the spine and shoulders. Old right-sided rib fractures. Vasculature: Calcifications overlie the aorta. IMPRESSION: No acute findings in the chest.
[2024-10-14] MEDS: ASPIRIN 81 MG PO STA (05:38)
[2024-10-14] MEDS: ASPIRIN 325 MG TAB PO STA (05:38)
[2024-10-14 05:44] LABS: Appearance,Urine Clear (Clear); Bilirubin,Urine Negative (Negative); Blood,Urine Trace (Negative); Budding Yeast,Urine Occasional /hpf; Color,Urine Colorless; Glucose,Urine (UA) 1+ (Negative); Hyphae Yeast, Urine Occasional /hpf; Ketones,Urine Negative (Negative); Leukocyte Esterase,Urine Negative (Negative); Mucus,Urine Rare /hpf; Nitrite,Urine Negative (Negative); Protein,Urine Negative (Negative); RBC,Urine 8 /hpf (0-5); Urobilinogen,Urine <2.0 mg/dL (<2.0); WBC,Urine 1 /hpf (0-5)
[2024-10-14 06:57] LABS: Specific Gravity,Urine 1.047 (1.001-1.035)
[2024-10-14] MEDS ORDERED: ALBUTEROL NEBULIZED 2.5 MG/3 ML INHALATION PRN (08:00)
[2024-10-14] MEDS ORDERED: DEXTROSE 50% SYRINGE 50 ML IVP PRN ×2 (08:03)
[2024-10-14] MEDS ORDERED: TIOTROPIUM 2.5 MCG INHALER INHALATION SCH (08:15)
--- NOTE | 2024-10-14 08:20 | P.HPIM ---
History of Present Illness H&P Date: 10/14/24 History of Presenting Illness: Patient is a pleasant 74-year-old female with a past medical history of paroxysmal atrial fibrillation on anticoagulation with Eliquis, hypertension, hyperlipidemia, insulin-dependent diabetes mellitus, and dementia with mild memory impairment on Namenda. She presented to the emergency department as a code stroke. Patient was reportedly found by staff at assisted living facility to be awake asking for a bowl of cereal when they noticed she had left sided facial droop and altered mental status immediately calling EMS for transfer to the hospital for concerns of acute CVA. Upon arrival to our facility, facial droop had resolved but patient remained altered. She underwent evaluation in the emergency department. Vital signs upon arrival show blood glucose 193, blood pressure 184/105, heart rate 98, respiratory rate 18, temp 98.0 F, and SpO2 of 96% on room air. EKG completed showing normal sinus rhythm at 95 bpm with left ventricular hypertrophy and T wave inversion in inferior leads III and aVF. CT brain was completed negative for acute intracranial process. CTA head and neck also reported negative. Labs completed and reviewed. CBC showing leukocytosis with WBC count of 14.6 and neutrophils of 11.6. Coagulation profile showing a low PTT of 21.1 otherwise normal findings. BMP showing sodium 136, slightly elevated BUN of 18 with blood glucose 202. Liver profile unremarkable. Creatinine kinase was low at 22. Troponin was 0.016.. Urinalysis negative for infection. Patient was given aspirin 325 mg p.o. x 1 dose and admitted under our services with consultation to neurology. Review of systems: Pertinent positives and negatives as discussed in HPI, a complete review of systems was performed and all other systems are negative. Physical exam: Vital signs reviewed and stable. General: Nontoxic, no distress and appears stated age. Derm: Skin warm and dry, normal coloration for ethnicity. Head: Atraumatic, normocephalic and symmetric. Eyes: EOM's intact, no lid lag, and anicteric sclera Mouth: no lip lesions, mucus membranes moist Cardiovascular: regular rate and rhythm with normal S1S2, no murmur, positive posterior tibial pulses bilaterally, and cap refill < 2 seconds. Lungs: Respirations even, regular, and unlabored on room air. Lungs CTA bilaterally, no rhonchi, no rales, no wheezing, and no accessory muscle usage. Abdominal: soft, nontender to palpation, no guarding, no appreciable organomegaly Ext: No gross muscle atrophy, no edema, no contractures. Movement and sensation intact. Patient appears to have generalized weakness in bilateral lower extremities but is able to lift and bend without any difficulties independently. Upon examination patient does have some mild noted left upper extremity weakness when compared to right. Neuro: Speech clear, patient able to state her name but has significant expressive aphasia and unable to identify simple objects such as pen, TV,, face symmetrical with no noted focal neuro deficits Psych: Alert and oriented to self only. Assessment and Plan of Care: Left-sided facial droop and altered mental status, rule out TIA versus CVA -Consult neurology -Echocardiogram -MRI brain without contrast -TSH, Lipid profile, and Hgb A1c -NIH stroke scale with neuro checks every 4 hours and as needed -Daily aspirin and atorvastatin. -Resume {BP medication} tomorrow a.m, as we will allow for permissive hypertension over next 24 hours. -PT/OT consult -Consult placed to speech and language pathologist -Fall precautions and provide pt with assistance as needed Paroxysmal atrial fibrillation Hypertension Hyperlipidemia -Continue medication regimen with atorvastatin 40 mg nightly and metoprolol 12.5 mg twice daily. -Eliquis held per recommendations from neurologist. Patient started on dual antiplatelet therapy with aspirin and Plavix. Insulin dependent diabetes mellitus with hyperglycemia -Hold metformin and Tradjenta continue Lantus 10 units nightly. Patient placed on glycemic protocol with NovoLog sliding scale. Follow-up on hemoglobin A1c result. Dementia with mild memory impairment -Continue Namenda 5 mg twice daily. Provide safe and supportive care with assistance and redirection as needed. Maintain fall precautions. Data and imaging reviewed: As stated above in HPI. CODE STATUS: Full code DVT prophylaxis: SCDs, resume Eliquis once cleared by a neurologist Anticipated discharge date: Pending clinical course Anticipated discharge place: Pending clinical course, possible return to assisted living facility Patient was seen independently by Nurse Practitioner. This document was prepared using [employer] dictation software. Please allow for errors in thermostat maker while rare they do occur. Rayshawn Alexis NP rendered care for this patient independently, reviewed the findings and plan as documented in the note above and agree with plan. I did not physically speak with or examine the patient on this date. Past Medical History Past Medical History: Dementia, Diabetes Mellitus, Hyperlipidemia History of Any Multi-Drug Resistant Organisms: None Reported Past Surgical History: Unable to Obtain Additional Past Surgical History / Comment(s): possible cholecystectomy, Past Psychological History: No Psychological Hx Reported Smoking Status: Never smoker Past Alcohol Use History: None Reported Past Drug Use History: None Reported Medications and Allergies Home Medications Medication Instructions Recorded Confirmed Type Albuterol Sulfate [Albuterol 2 puff INHALATION RT-Q6H PRN 07/07/23 10/14/24 History Sulfate Hfa] LORazepam [Ativan] 0.5 mg PO BID PRN 07/07/23 10/14/24 History Memantine HCl [Namenda] 5 mg PO BID 07/07/23 10/14/24 History traMADol HCL/ACETAMINOPHEN 1 tab PO BID PRN 07/07/23 10/14/24 History [Ultracet 37.5-325] Acetaminophen Tab [Tylenol] 650 mg PO Q6H PRN 09/12/23 10/14/24 History Atorvastatin [Lipitor] 40 mg PO HS 09/12/23 10/14/24 History Apixaban [Eliquis] 5 mg PO Q12HR@0800,1200 10/14/24 10/14/24 History Aspirin EC [Ecotrin Low Dose] 81 mg PO DAILY 10/14/24 10/14/24 History Famotidine 20 mg PO DAILY 10/14/24 10/14/24 History Fluticasone/Umeclidin/Vilanter 1 puff INHALATION RT-DAILY 10/14/24 10/14/24 History [Trelegy Ellipta 100-62.5-25] Insulin Glargine,Hum.rec.anlog 10 units SQ HS 10/14/24 10/14/24 History [Lantus Solostar Pen] Ipratropium-Albuterol Nebulize 3 ml INHALATION RT-TID 10/14/24 10/14/24 History [Duoneb 0.5 mg-3 mg/3 ml Soln] Linagliptin [Tradjenta] 5 mg PO DAILY 10/14/24 10/14/24 History Loperamide HCl [Loperamide] 2 - 4 mg PO QID PRN 10/14/24 10/14/24 History Metoprolol Tartrate [Lopressor] 12.5 mg PO BID 10/14/24 10/14/24 History Nystatin [Nystop] 1 applic TOPICAL BID 10/14/24 10/14/24 History guaiFENesin-DM 100-10MG/5ML 5 - 10 ml PO Q6H PRN 10/14/24 10/14/24 History [Robitussin DM] metFORMIN HCL 1,000 mg PO BID 10/14/24 10/14/24 History Allergies Allergy/AdvReac Type Severity Reaction Status Date / Time Sulfa (Sulfonamide Allergy Unknown Verified 10/14/24 07:20 Antibiotics) Physical Exam Vitals: Vital Signs Temp Pulse Resp BP Pulse Ox 10/14/24 06:54 86 18 132/91 95 10/14/24 05:31 86 18 114/84 95 10/14/24 05:04 95 18 142/99 95 10/14/24 04:30 96 20 144/85 96 10/14/24 04:06 98.0 F 98 18 184/105 96 Intake and Output 10/13/24 10/14/24 10/14/24 22:59 06:59 14:59 Other: Weight 81.647 kg Results CBC & Chem 7: 10/14/24 04:07 10/14/24 04:07 Labs: Abnormal Lab Results - Last 24 Hours (Table) 10/14/24 10/14/24 10/14/24 Range/Units 04:06 04:07 04:07 WBC 14.6 H (3.8-10.6) k/uL Neutrophils # 11.6 H (1.3-7.7) k/uL APTT 21.1 L (22.0-30.0) sec Sodium (137-145) mmol/L BUN (7-17) mg/dL Glucose (74-99) mg/dL POC Glucose (mg/dL) 193 H (70-110) mg/dL Creatine Kinase (30-135) U/L Total Protein (6.3-8.2) g/dL Ur Specific [place] (1.001-1.035) Urine Glucose (UA) (Negative) Urine Blood (Negative) Urine RBC (0-5) /hpf Urine Mucus (None) /hpf Urine Yeast (Budding) (None) /hpf 10/14/24 10/14/24 Range/Units 04:07 05:31 WBC (3.8-10.6) k/uL Neutrophils # (1.3-7.7) k/uL APTT (22.0-30.0) sec Sodium 136 L (137-145) mmol/L BUN 18 H (7-17) mg/dL Glucose 202 H (74-99) mg/dL POC Glucose (mg/dL) (70-110) mg/dL Creatine Kinase 22 L (30-135) U/L Total Protein 6.2 L (6.3-8.2) g/dL Ur Specific [place] 1.047 H (1.001-1.035) Urine Glucose (UA) 1+ H (Negative) Urine Blood Trace H (Negative) Urine RBC 8 H (0-5) /hpf Urine Mucus Rare H (None) /hpf Urine Yeast (Budding) Occasional H (None) /hpf
[2024-10-14] MEDS: SYMBICORT 160-4.5 MCG INHALER INHALATION SCH (08:39)
[2024-10-14] MEDS: IPRATROPIUM-ALBUTEROL 3 ML NEB INHALATION SCH (08:39)
[2024-10-14] MEDS ORDERED: ASPIRIN 81 MG PO SCH (09:00)
[2024-10-14] MEDS: APIXABAN 5 MG TAB PO SCH (09:21)
[2024-10-14] MEDS: METOPROLOL TARTRATE 12.5 MG TAB PO SCH (09:21)
[2024-10-14] MEDS: MEMANTINE 5 MG TAB PO SCH (09:21)
[2024-10-14] MEDS: FAMOTIDINE 20 MG TAB PO SCH (09:21)
[2024-10-14 12:54] LABS: Glucose,Whole Blood 169 mg/dL (70-110)
[2024-10-14] MEDS: INSULIN LISPRO (HumaLOG) 100 UNIT/ML 10 mL VL SQ SCH (14:13)
--- NOTE | 2024-10-14 15:13 | P.CNNES ---
History of Present Illness Consult date: 10/14/24 Requesting physician: Lane Dow Reason for Consult: code stroke History of Present Illness: This is a 74-year-old woman who presents her assisted living facility to our emergency department for left facial droop. She is obtained from medical records since patient is unable to history. It seems per the ED team the patient was asking for a bowl of cereal at her nursing facility staff member noted she had left facial droop and was noted to be altered. At baseline she is oriented x 4. As a result EMS was called for concern for stroke. Per her home medication it seems the patient is on Eliquis 5 mg every 12 hours. She has underlying mild dementia, diabetes, hyperlipidemia. As a result a code stroke was activated. Per the ED team her NIH stroke scale was elevated and she is not a candidate for thrombolytic due to anticoagulation and the risk outweigh the benefit. Physician spoke with the stroke attending adult education instructor commended medical management and neurology consultation. Some of the other workup consisted of: TSH is 1.340 CT of the head is reported as no evidence of acute intracranial pathology. P ersonally reviewed the CT and agree there is no acute process. Patient does have evidence of old stroke and appears mostly over the left more than the right CT angiography of the head and neck is reported as negative Review of Systems As per HPI. Past Medical History Past Medical History: Dementia, Diabetes Mellitus, Hyperlipidemia History of Any Multi-Drug Resistant Organisms: None Reported Past Surgical History: Unable to Obtain Additional Past Surgical History / Comment(s): possible cholecystectomy, Past Psychological History: No Psychological Hx Reported Smoking Status: Never smoker Past Alcohol Use History: None Reported Past Drug Use History: None Reported Medications and Allergies Home Medications Medication Instructions Recorded Confirmed Type Albuterol Sulfate [Albuterol 2 puff INHALATION RT-Q6H PRN 07/07/23 10/14/24 History Sulfate Hfa] LORazepam [Ativan] 0.5 mg PO BID PRN 07/07/23 10/14/24 History Memantine HCl [Namenda] 5 mg PO BID 07/07/23 10/14/24 History traMADol HCL/ACETAMINOPHEN 1 tab PO BID PRN 07/07/23 10/14/24 History [Ultracet 37.5-325] Acetaminophen Tab [Tylenol] 650 mg PO Q6H PRN 09/12/23 10/14/24 History Atorvastatin [Lipitor] 40 mg PO HS 09/12/23 10/14/24 History Apixaban [Eliquis] 5 mg PO Q12HR@0800,1200 10/14/24 10/14/24 History Aspirin EC [Ecotrin Low Dose] 81 mg PO DAILY 10/14/24 10/14/24 History Famotidine 20 mg PO DAILY 10/14/24 10/14/24 History Fluticasone/Umeclidin/Vilanter 1 puff INHALATION RT-DAILY 10/14/24 10/14/24 H istory [Trelegy Ellipta 100-62.5-25] Insulin Glargine,Hum.rec.anlog 10 units SQ HS 10/14/24 10/14/24 History [Lantus Solostar Pen] Ipratropium-Albuterol Nebulize 3 ml INHALATION RT-TID 10/14/24 10/14/24 History [Duoneb 0.5 mg-3 mg/3 ml Soln] Linagliptin [Tradjenta] 5 mg PO DAILY 10/14/24 10/14/24 History Loperamide HCl [Loperamide] 2 - 4 mg PO QID PRN 10/14/24 10/14/24 History Metoprolol Tartrate [Lopressor] 12.5 mg PO BID 10/14/24 10/14/24 History Nystatin [Nystop] 1 applic TOPICAL BID 10/14/24 10/14/24 History guaiFENesin-DM 100-10MG/5ML 5 - 10 ml PO Q6H PRN 10/14/24 10/14/24 History [Robitussin DM] metFORMIN HCL 1,000 mg PO BID 10/14/24 10/14/24 History Allergies Allergy/AdvReac Type Severity Reaction Status Date / Time Sulfa (Sulfonamide Allergy Unknown Verified 10/14/24 07:20 Antibiotics) Physical Examination - Vital Signs Vital Signs: Vital Signs Temp Pulse Resp BP Pulse Ox 10/14/24 09:19 98.1 F 86 18 132/86 96 10/14/24 08:53 84 10/14/24 08:43 80 10/14/24 06:54 86 18 132/91 95 10/14/24 05:31 86 18 114/84 95 10/14/24 05:04 95 18 142/99 95 03/24/25 04:30 96 20 144/85 96 10/14/24 04:06 98.0 F 98 18 184/105 96 Intake and Output 10/13/24 10/14/24 10/14/24 22:59 06:59 14:59 Other: Weight 81.647 kg General: Lying in bed and does not appear in acute distress. Neuro: Limited. Patient is awake alert oriented to self. She followed simple commands. Seems that she has aphasia and keeps on repeating the same phrase ov er and over repeating her name. Also she would repeat the same month over and over again. Falls are round about 3 mm and reactive to light. Visual mcclelland are full to consultation. Does have left lower facial droop. No dysarthria Motor strength in the left upper extremity is weaker compared to the right upper extremity. Bilateral lowers seems equal. Patient is normal to touch Reflexes is 2 positive in the upper and 1 positive in the lower. Results - Laboratory Findings CBC and BMP: 10/14/24 04:07 10/14/24 04:07 Abnormal Lab Findings: Abnormal Labs 10/14/24 10/14/24 10/14/24 04:06 04:07 04:07 WBC 14.6 H Neutrophils # 11.6 H APTT 21.1 L Sodium BUN Glucose POC Glucose (mg/dL) 193 H Creatine Kinase Total Protein Ur Specific [place] Urine Glucose (UA) Urine Blood Urine RBC Urine Mucus Urine Yeast (Budding) 10/14/24 10/14/24 10/14/24 04:07 05:31 12:53 WBC Neutrophils # APTT Sodium 136 L BUN 18 H Glucose 202 H POC Glucose (mg/dL) 169 H Creatine Kinase 22 L Total Protein 6.2 L Ur Specific [place] 1.047 H Urine Glucose (UA) 1+ H Urine Blood Trace H Urine RBC 8 H Urine Mucus Rare H Urine Yeast (Budding) Occasional H Assessment and Plan Assessment: This is a 74-year-old woman who presents the emergency department from her assisted living facility because of left lower facial droop and weakness. On examination the patient has is significant expressive aphasia with left facial droop. Is on Eliquis at home. Likely acute ischemic stroke with symptoms of expressive aphasia, left upper extremity, left facial droop. He will IV TNK because patient is on anticoagulation and the risk outweigh the benefit History of paroxysmal atrial fibrillation on Eliquis Hypertension Hyperlipidemia Underlying history of dementia though similar to reported on the medical record Plan: MRI of the brain, 2D echo, lipid panel are ordered and pending Patient was given aspirin 324 mg once in the ED then was resumed on her home dose of 81 mg daily. Recommend avoid eliquis since likely has stroke and can cause hemorrhagic transformation. But if needed can use heparin drip in the meantime until we get that MRI and assess the size of the stroke. I started her on Plavix once Eliquis is held in meantime. Patient is on Lipitor 40 mg nightly for secondary stroke prophylaxis. Continue neurochecks Cardiac monitoring PT OT and WOOL GRADER are consulted Recommend permissive hypertension for 24-48 hours Will defer the rest of the medical management to primary and other specialist For DVT prophylaxis use subcu heparin or Lovenox if no anticoagulation is used. Plan is discussed with the primary team VENDOR MANAGEMENT CONSULTANT Thank you for the consultation Time with Patient: Greater than 30
[2024-10-14 17:20] LABS: Glucose,Whole Blood 155 mg/dL (70-110)
[2024-10-14 20:15] LABS: Glucose,Whole Blood 157 mg/dL (70-110)
[2024-10-14] MEDS: INSULIN GLARGINE (LANTUS) 100 UNIT/ML SYR SQ SCH (20:51)
[2024-10-14] MEDS: HEPARIN SODIUM,PORCINE 5,000 UNIT/ML 1 ML VIAL SQ SCH (20:51)
[2024-10-14] MEDS: ATORVASTATIN 40 MG TAB PO SCH (20:51)
[2024-10-15 06:12] LABS: Glucose,Whole Blood 163 mg/dL (70-110)
[2024-10-15] MEDS: CLOPIDOGREL 75 MG TAB PO SCH (07:49)
[2024-10-15] MEDS: ASPIRIN 81 MG PO SCH (07:49)
[2024-10-15 08:14] LABS: HCT 39.6 % (34.0-46.0); HGB 12.8 gm/dL (11.4-16.0); MCH 27.5 pg (25.0-35.0); MCHC 32.3 g/dL (31.0-37.0); MCV 85.1 fL (80.0-100.0); Mean Platelet Volume 8.4; Platelet Count 294 k/uL (150-450); RBC 4.65 m/uL (3.80-5.40); RDW 13.5 % (11.5-15.5); WBC 13.5 k/uL (3.8-10.6)
[2024-10-15 08:38] LABS: ALT 23 U/L (4-34); AST 25 U/L (14-36); African American GFR (CKD) >90 (>60 ml/min/1.73 sqM); Albumin 3.9 g/dL (3.5-5.0); Alkaline Phosphatase 95 U/L (38-126); Anion Gap 8 mmol/L; Blood Urea Nitrogen 13 mg/dL (7-17); Calcium 9.6 mg/dL (8.4-10.2); Carbon Dioxide 30 mmol/L (22-30); Chloride 99 mmol/L (98-107); Glucose 132 mg/dL (74-99); Magnesium 1.2 mg/dL (1.6-2.3); Non-African American GFR(CKD) 81 (>60 ml/min/1.73 sqM); Potassium 3.8 mmol/L (3.5-5.1); Sodium 137 mmol/L (137-145); Total Bilirubin 1.3 mg/dL (0.2-1.3); Total Protein 6.4 g/dL (6.3-8.2)
[2024-10-15] MEDS ORDERED: ASPIRIN 325 MG TAB PO SCH (09:00)
[2024-10-15] MEDS: MAGNESIUM SULFATE-D5W PMX 1 GM in DEXTROSE/WATER 1 100ML.BAG IVPB SCH (09:20)
--- NOTE | 2024-10-15 10:24 | MR ---
INDICATION: Patient age:Female; 74 years old; Reason for study: TIA vs CVA; PHH. COMPARISON: MRI brain 07/08/2023, CT brain 10/14/2024, 07/07/2023, CTA head and neck 10/14/2024. TECHNIQUE: Multi planar, multi sequence imaging was performed through the brain without the administr ation of intravenous contrast. Limited examination due to patient transplant pole hypoechoic picking her legs up. FINDINGS: Motion degraded. The orellana-white junctions, ventricular system, basal cisterns appear unremarkable. Prominent high T2 s ignal. Vascular spaces. Diffusion-weighted imaging shows a focus of restricted diffusion within the r ight periventricular parietal lobe white matter. There appears to be low signal in this region on ADC map. Remote high T2 signal injuries involving the bilateral isaac radiata of the frontal lobe. Intr acranial arterial flow voids are maintained. Midline structures show no abnormality. Confluent areas of high T2 signal intensity are seen within the periventricular and subcortical white matter. No susc eptibility weighted imaging or FLAIR sequences were obtained due to limitation. The bone marrow signal is within normal limits. The paranasal sinuses appear grossly unremarkable. B ilateral aphakia. IMPRESSION: 1. Significantly limited examination due to patient condition and motion with several sequences not obtained. There appears to be a focus of restricted diffusion within the right parietal periventricul ar white matter suggesting acute/subacute ischemia. 2. Remote injuries to the bilateral isaac radiata. 3. Redemonstration of confluent advanced periventricular and subcortical white matter changes likely related to small vessel ischemic disease. [facility], , 10/15/2024 10:22 AM
--- NOTE | 2024-10-15 11:04 | CA ---
Transthoracic Echo Report Name: Kinza Conrad Age: 74 Gender: F : 1950 Exam Date: 10/15/2024 08:28 Exam Location: [facility] Ht (in): 66 Wt (lb): 180 Ordering Physician: Rayshawn Alexis Attending/Referring Phys: [employer]ines Assembler Marii Alonzo RDCS Procedure CPT: Indications: TIA vs CVA Cardiac Hx: HTN, Dementia, diabetes Technical Quality: Good Contrast 1: Total Dose (mL): Contrast 2: Total Dose (mL): MEASUREMENTS (Male / Female) Normal Values 2D ECHO LV Diastolic Diameter PLAX 4.3 cm 4.2 - 5.9 / 3.9 - 5.3 cm LV Systolic Diameter PLAX 3.0 cm IVS Diastolic Thickness 0.9 cm 0.6 - 1.0 / 0.6 - 0.9 cm LVPW Diastolic Thickness 1.0 cm 0.6 - 1.0 / 0.6 - 0.9 cm LV Relative Wall Thickness 0.4 RV Internal Dim ED PLAX 3.6 cm LVOT Diameter 1.9 cm LA Systolic Diameter LX 3.0 cm 3.0 - 4.0 / 2.7 - 3.8 cm LA Volume 39.7 cm??? 18 - 58 / 22 - 52 cm??? LA Volume Index 20.1 cm???/m??? 16 - 28 cm???/m??? DOPPLER MV Area PHT 4.1 cm??? Mitral E Point Velocity 40.5 cm/s Mitral A Point Velocity 59.4 cm/s Mitral E to A Ratio 0.7 MV Deceleration Time 183.1 ms FINDINGS Left Ventricle Left ventricular ejection fraction is estimated at 60-65 %. Normal Left ventricular size, wall thickness, systolic function with no obvious regional wall motion abnormalities. Right Ventricle Normal right ventricular size and function. Unable to estimate the right ventricular systolic pressure. Right Atrium Normal right atrial size. Left Atrium Normal left atrial size. Mitral Valve Structurally normal mitral valve. No mitral stenosis. Trace mitral regurgitation. Aortic Valve Trileaflet aortic valve. Aortic valve sclerosis. No aortic stenosis. No aortic regurgitation. Tricuspid Valve Structurally normal tricuspid valve. No tricuspid stenosis, regurgitation or prolapse. Pulmonic Valve Structurally normal pulmonic valve. No pulmonic stenosis. Trace pulmonic regurgitation. Pericardium No pericardial effusion. No pleural effusion. Aorta Normal size aortic root and proximal ascending aorta. CONCLUSIONS Normal LV systolic function Previewed by: Dr. Stone Ríos MD (Electronically Signed) Final Date: 15 October 2024 11:03
[2024-10-15 11:45] LABS: Glucose,Whole Blood 172 mg/dL (70-110)
--- NOTE | 2024-10-15 14:08 | P.PN ---
Subjective Progress Note Date: 10/15/24 I am following-up with patient and she feels better. She continues have speech difficulty. Objective - Vital Signs Vital signs: Vital Signs Temp 97.6 F 10/15/24 07:48 Pulse 92 10/15/24 12:16 Resp 18 10/15/24 12:00 BP 136/85 10/15/24 12:00 Pulse Ox 96 10/15/24 12:00 FiO2 Intake & Output 10/14/24 10/15/24 10/15/24 18:59 06:59 18:59 Intake Total 20 Output Total 150 Balance -130 Weight 81.647 kg 78 kg Intake: IV 20 Invasive Line 1 20 Output: Urine 150 Other: Voiding Method Diaper Diaper Incontinent Incontinent External Catheter External Catheter # Voids 1 - Exam General: Lying in bed and is not in acute distress. Neuro: The patient is awake, alert, oriented to self. She is repeating the same word "2005". Appears to have expressive aphasia. Is following simple commands. Visual mcclelland are full to confrontation. No facial weakness. No dysarthria. Motor: Strength is 5/5 throughout uppers and wiggling toes symmetrically. Some of the other workup consisted of: TSH is 1.340 CT of the head is reported as no evidence of acute intracranial pathology. Personally reviewed the CT and agree there is no acute process. Patient does have evidence of old stroke and appears mostly over the left more than the right CT angiography of the head and neck is reported as negative MRI Brain: Significantly limited examination due to patient condition and motion with several sequences not obtained. There appears to be a focus restricted diffusion within the right parietal periventricular white matter suggesting acute/subacute ischemia. Remote injuries to the bilateral isaac radiata. I personally reviewed it and was not convinced of acute or subacute ischemia. The focus seems more shine thru and was faint on DWI. 2D echo: Normal LV systolic function. - Labs CBC & Chem 7: 10/15/24 07:09 10/15/24 07:09 Labs: Abnormal Lab Results - Last 24 Hours (Table) 10/14/24 10/14/24 10/15/24 Range/Units 17:19 20:13 06:11 WBC (3.8-10.6) k/uL Glucose (74-99) mg/dL POC Glucose (mg/dL) 155 H 157 H 163 H (70-110) mg/dL Hemoglobin A1c (<=6.0) % Magnesium (1.6-2.3) mg/dL 10/15/24 10/15/24 10/15/24 Range/Units 07:09 07:09 07:09 WBC 13.5 H (3.8-10.6) k/uL Glucose 132 H (74-99) mg/dL POC Glucose (mg/dL) (70-110) mg/dL Hemoglobin A1c 8.3 H (<=6.0) % Magnesium 1.2 L (1.6-2.3) mg/dL 10/15/24 Range/Units 11:43 WBC (3.8-10.6) k/uL Glucose (74-99) mg/dL POC Glucose (mg/dL) 172 H (70-110) mg/dL Hemoglobin A1c (<=6.0) % Magnesium (1.6-2.3) mg/dL Assessment and Plan Assessment: This is a 74-year-old woman who presents the emergency department from her assisted living facility because of left lower facial droop and weakness. On examination the patient has is significant expressive aphasia with left facial droop. Is on Eliquis at home. Likely acute ischemic stroke with symptoms of expressive aphasia, left upper extremity, left facial droop. On MRI there is ?? focus restricted diffusion within the right parietal periventricular white matter suggesting acute/subacute ischemia but MRI was limited because of motion artifact. History of paroxysmal atrial fibrillation on Eliquis Hypertension Hyperlipidemia Underlying history of dementia though similar to reported on the medical record Plan: MRI of the brain, 2D echo, lipid panel are ordered and pending Continue home dose of 81 mg daily. Can resume home Eliquis. If resumes then discontinue Plavix that was started by our team to avoid increased risk of bleed. Patient is on Lipitor 40 mg nightly for secondary stroke prophylaxis. Continue neurochecks Cardiac monitoring PT OT and PRODUCTION AIDE are consulted Recommend permissive hypertension for 24 hours Will defer the rest of the medical management to primary and other specialist Plan is discussed with the primary team YOUTH CARE SPECIALIST Time with Patient: Less than 30
--- NOTE | 2024-10-15 14:39 | P.PN ---
Subjective Progress Note Date: 10/15/24 Hospital Course: Patient is a pleasant 74-year-old female with a past medical history of paroxysmal atrial fibrillation on anticoagulation with Eliquis, hypertension, hyperlipidemia, insulin-dependent diabetes mellitus, and dementia with mild memory impairment on Namenda. She presented to the emergency department as a code stroke. Patient was reportedly found by staff at assisted living facility to be awake asking for a bowl of cereal when they noticed she had left sided facial droop and altered mental status immediately calling EMS for transfer to the hospital for concerns of acute CVA. Upon arrival to our facility, facial droop had resolved but patient remained altered. She underwent evaluation in the emergency department. Vital signs upon arrival show blood glucose 193, blood pressure 184/105, heart rate 98, respiratory rate 18, temp 98.0 F, and SpO2 of 96% on room air. EKG completed showing normal sinus rhythm at 95 bpm with left ventricular hypertrophy and T wave inversion in inferior leads III and aVF. CT brain was completed negative for acute intracranial process. CTA head and neck also reported negative. Labs completed and reviewed. CBC showing leukocytosis with WBC count of 14.6 and neutrophils of 11.6. Coagulation profile showing a low PTT of 21.1 otherwise normal findings. BMP showing sodium 136, slightly elevated BUN of 18 with blood glucose 202. Liver profile unremarkable. Creatinine kinase was low at 22. Troponin was 0.016.. Urinalysis negative for infection. Patient was given aspirin 325 mg p.o. x 1 dose and admitted under our services with consultation to neurology. Physical exam: Patient seen and fully evaluated at bedside this morning. Her speech is clear but she continues to have significant expressive aphasia. Left upper extremity weakness seems to have improved but remains slightly weaker than right and she is moving bilateral lower extremities without any difficulties with equal and symmetrical strength and movement. Vital signs reviewed and stable. General: Nontoxic, no distress and appears stated age. Derm: Skin warm and dry, normal coloration for ethnicity. Head: Atraumatic, normocephalic and symmetric. Eyes: EOM's intact, no lid lag, and anicteric sclera Mouth: no lip lesions, mucus membranes moist Cardiovascular: regular rate and rhythm with normal S1S2, no murmur, positive posterior tibial pulses bilaterally, and cap refill < 2 seconds. Lungs: Respirations even, regular, and unlabored on room air. Lungs CTA bilaterally, no rhonchi, no rales, no wheezing, and no accessory muscle usage. Abdominal: soft, nontender to palpation, no guarding, no appreciable organomegaly Ext: No gross muscle atrophy, no edema, no contractures. Movement and sensation intact. Patient appears to have generalized weakness in bilateral lower extremities but is able to lift and bend without any difficulties independently. Upon examination patient does have some mild noted left upper extremity weakness when compared to right. Neuro: Speech clear, patient able to state her name but has significant expressive aphasia and unable to identify simple objects such as pen, TV,, face symmetrical with no noted focal neuro deficits Psych: Alert and oriented to self only. Assessment and Plan of Care: Left-sided facial droop and altered mental status, rule out TIA versus CVA -Consult neurology -Echocardiogram completed showing a preserved EF of 60 to 65% and no significant valvular or structural abnormalities reported. -MRI brain without contrast, patient scheduled for later this morning -TSH normal findings at 1.340, hemoglobin A1c is 8.3% and lipid profile remains pending. -NIH stroke scale with neuro checks every 4 hours and as needed -Daily aspirin 81 mg daily, Plavix 75 mg daily, and atorvastatin 40 mg nightly. -PT/OT consult -Consult placed to speech and language pathologist -Fall precautions and provide pt with assistance as needed Paroxysmal atrial fibrillation Hypertension Hyperlipidemia -Continue medication regimen with atorvastatin 40 mg nightly and metoprolol 12.5 mg twice daily. -Eliquis held per recommendations from neurologist. Patient started on dual antiplatelet therapy with aspirin and Plavix. Insulin dependent diabetes mellitus with hyperglycemia -Hold metformin and Tradjenta continue Lantus 10 units nightly. Patient placed on glycemic protocol with NovoLog sliding scale. Follow-up on hemoglobin A1c result. Dementia with mild memory impairment -Continue Namenda 5 mg twice daily. Provide safe and supportive care with assistance and redirection as needed. Maintain fall precautions. Data and imaging reviewed: Morning labs reviewed. CBC showing mild leukocytosis with WBC count of 13.5 otherwise normal findings. BMP unremarkable. Blood glucose 132. Hemoglobin A1c 8.3%. Magnesium was low at 1.2. Liver profile unremarkable. Vital signs reviewed. Blood pressure 130/82, heart rate 89, respiratory rate 18, temp 97.6 F, and SpO2 of 94% on room air. CODE STATUS: Full code DVT prophylaxis: SCDs, resume Eliquis once cleared by a neurologist Anticipated discharge date: Pending clinical course Anticipated discharge place: Pending clinical course, possible return to assisted living facility Patient was seen independently by Nurse Practitioner. This document was prepared using [employer] dictation software. Please allow for errors in oil expert while rare they do occur. Ryashawn Alexis NP rendered care for this patient independently, reviewed the findings and plan as documented in the note above and agree with plan. I did no t physically speak with or examine the patient on this date. Objective - Vital Signs Vital signs: Vital Signs Temp 97.6 F 10/15/24 07:48 Pulse 89 10/15/24 07:48 Resp 18 10/15/24 07:48 BP 130/82 10/15/24 07:48 Pulse Ox 94 L 10/15/24 07:48 FiO2 Intake & Output 10/14/24 10/15/24 10/15/24 18:59 06:59 18:59 Intake Total 20 Output Total 150 Balance -130 Weight 81.647 kg 78 kg Intake: IV 20 Invasive Line 1 20 Output: Urine 150 Other: Voiding Method Diaper Diaper Incontinent Incontinent External Catheter External Catheter # Voids 1 - Labs CBC & Chem 7: 10/15/24 07:09 10/15/24 07:09 Labs: Abnormal Lab Results - Last 24 Hours (Table) 10/14/24 10/14/24 10/14/24 Range/Units 12:53 17:19 20:13 WBC (3.8-10.6) k/uL Glucose (74-99) mg/dL POC Glucose (mg/dL) 169 H 155 H 157 H (70-110) mg/dL Magnesium (1.6-2.3) mg/dL 10/15/24 10/15/24 10/15/24 Range/Units 06:11 07:09 07:09 WBC 13.5 H (3.8-10.6) k/uL Glucose 132 H (74-99) mg/dL POC Glucose (mg/dL) 163 H (70-110) mg/dL Magnesium 1.2 L (1.6-2.3) mg/dL
[2024-10-15 16:40] LABS: Glucose,Whole Blood 234 mg/dL (70-110)
[2024-10-15 19:11] LABS: Chol/HDL Ratio 2.69 Ratio
[2024-10-15 20:16] LABS: Glucose,Whole Blood 229 mg/dL (70-110)
[2024-10-16 06:04] LABS: Glucose,Whole Blood 208 mg/dL (70-110)
[2024-10-16 06:45] LABS: HCT 39.5 % (34.0-46.0); HGB 12.5 gm/dL (11.4-16.0); Hypochromasia Slight; MCH 27.4 pg (25.0-35.0); MCHC 31.7 g/dL (31.0-37.0); MCV 86.3 fL (80.0-100.0); Mean Platelet Volume 7.9; Platelet Count 294 k/uL (150-450); RBC 4.58 m/uL (3.80-5.40); RDW 13.5 % (11.5-15.5); WBC 13.2 k/uL (3.8-10.6)
[2024-10-16 07:04] LABS: ALT 25 U/L (4-34); AST 31 U/L (14-36); African American GFR (CKD) 85 (>60 ml/min/1.73 sqM); Albumin 3.8 g/dL (3.5-5.0); Alkaline Phosphatase 97 U/L (38-126); Anion Gap 9 mmol/L; Blood Urea Nitrogen 17 mg/dL (7-17); Calcium 9.7 mg/dL (8.4-10.2); Carbon Dioxide 28 mmol/L (22-30); Chloride 99 mmol/L (98-107); Glucose 191 mg/dL (74-99); Magnesium 2.2 mg/dL (1.6-2.3); Non-African American GFR(CKD) 74 (>60 ml/min/1.73 sqM); Potassium 4.2 mmol/L (3.5-5.1); Sodium 136 mmol/L (137-145); Total Protein 6.2 g/dL (6.3-8.2)
[2024-10-16 11:31] LABS: Glucose,Whole Blood 221 mg/dL (70-110)
--- NOTE | 2024-10-16 11:31 | P.CONS ---
History of Present Illness - Reason for Consult Consult date: 10/16/24 rehab recommendations - Chief Complaint weakness, possible CVA - History of Present Illness Ms Conrad is a 74-year-old female who lives at [facility]. She was getting assistance with meds and transportation via to the dining area. She was independent with ADLs except help getting into the shower. She needed walker for short distance, wheelchair for longer distances. Her daughter lives in [place]. Patient presented to the ER for strokelike symptoms. Patient allegedly was awake at 3:00 AM. She was asking for a bowl of cereal like she normally does when all of a sudden assisted living facility staff noted she had left-sided facial droop. She was also found to be altered. At baseline she is A&O x 4. EMS was called for concerns of acute CVA. She takes anticoagulation medications. EMS stated that the facial droop resolved en route to the ER however she still remained altered. She has underlying mild dementia, diabetes, hyperlipidemia. As a result a code stroke was activated. Per the ED team her NIH stroke scale was elevated and she is not a candidate for thrombolytic due to anticoagulation and the risk outweigh the benefit.TSH is 1.340. CT of the head is reported as no evidence of acute intracranial pathology. Patient does have evidence of old stroke and appears mostly over the left more than the right.CT angiography of the head and neck is reported as negative. MRI brain was ordered and right parietal periventricular white matter suggesting acute/subacute ischemia but MRI was limited because of motion artifact. PM&R consulted for rehab recommendations. Patient was seen by therapies; mod assist with bathing,dressing, toileting, walker 10 ft with walker. 10/16/24: Patient with some spontaneous speech, pleasant, but is inconsistent. Denies any issues, not sure how many children she has. Review of Systems reviewed, as above in HPI Past Medical History Past Medical History: Dementia, Diabetes Mellitus, Hyperlipidemia Additional Past Medical History / Comment(s): frequent UTIs History of Any Multi-Drug Resistant Organisms: None Reported Past Surgical History: Unable to Obtain Additional Past Surgical History / Comment(s): possible cholecystectomy, Past Psychological History: No Psychological Hx Reported Smoking Status: Never smoker Past Alcohol Use History: None Reported Past Drug Use History: None Reported Medications and Allergies Home Medications Medication Instructions Recorded Confirmed Type Albuterol Sulfate [Albuterol 2 puff INHALATION RT-Q6H PRN 07/07/23 10/14/24 History Sulfate Hfa] LORazepam [Ativan] 0.5 mg PO BID PRN 07/07/23 10/14/24 History Memantine HCl [Namenda] 5 mg PO BID 07/07/23 10/14/24 History traMADol HCL/ACETAMINOPHEN 1 tab PO BID PRN 07/07/23 10/14/24 History [Ultracet 37.5-325] Acetaminophen Tab [Tylenol] 650 mg PO Q6H PRN 09/12/23 10/14/24 History Atorvastatin [Lipitor] 40 mg PO HS 09/12/23 10/14/24 History Apixaban [Eliquis] 5 mg PO Q12HR@0800,1200 10/14/24 10/14/24 History Aspirin EC [Ecotrin Low Dose] 81 mg PO DAILY 10/14/24 10/14/24 History Famotidine 20 mg PO DAILY 10/14/24 10/14/24 History Fluticasone/Umeclidin/Vilanter 1 puff INHALATION RT-DAILY 10/14/24 10/14/24 History [Trelegy Ellipta 100-62.5-25] Insulin Glargine,Hum.rec.anlog 10 units SQ HS 10/14/24 10/14/24 History [Lantus Solostar Pen] Ipratropium-Albuterol Nebulize 3 ml INHALATION RT-TID 10/14/24 10/14/24 History [Duoneb 0.5 mg-3 mg/3 ml Soln] Linagliptin [Tradjenta] 5 mg PO DAILY 10/14/24 10/14/24 History Loperamide HCl [Loperamide] 2 - 4 mg PO QID PRN 10/14/24 10/14/24 History Metoprolol Tartrate [Lopressor] 12.5 mg PO BID 10/14/24 10/14/24 History Nystatin [Nystop] 1 applic TOPICAL BID 10/14/24 10/14/24 History guaiFENesin-DM 100-10MG/5ML 5 - 10 ml PO Q6H PRN 10/14/24 10/14/24 History [Robitussin DM] metFORMIN HCL 1,000 mg PO BID 10/14/24 10/14/24 History Allergies Allergy/AdvReac Type Severity Reaction Status Date / Time Sulfa (Sulfonamide Allergy Unknown Verified 10/14/24 07:20 Antibiotics) Physical Exam Vitals: Vital Signs Temp Pulse Pulse Resp BP Pulse Ox 10/16/24 09:38 75 10/16/24 09:26 96 10/16/24 09:24 75 10/16/24 08:15 97.9 F 82 17 146/84 94 L 10/16/24 03:05 74 16 127/70 95 10/15/24 23:19 97 18 147/74 94 L 10/15/24 20:52 92 10/15/24 20:40 91 10/15/24 19:25 98.4 F 94 17 125/75 96 10/15/24 16:00 92 18 122/75 94 L 10/15/24 12:16 92 10/15/24 12:03 92 10/15/24 12:00 87 18 136/85 96 Intake and Output 10/15/24 10/16/24 10/16/24 22:59 06:59 14:59 Intake Total 260 20 260 Output Total 100 100 Balance 160 -80 260 Intake: IV 20 20 20 Invasive Line 1 10 10 10 Invasive Line 2 10 10 10 Oral 240 240 Output: Urine 100 100 Other: Voiding Method Diaper Diaper Diaper Incontinent Incontinent Incontinent External Catheter External Catheter External Catheter # Voids 1 Weight 78 kg General Impression: WDWN elderly female, following commands HEENT: Normocephalic atraumatic, extra-ocular movements intact, pupils equal and reactive to light bilaterally, mucous membranes moist. Cardiovascular: Regular rate Chest: even and unlabored respirations on RA Abdomen: abdomen soft, non-tender, non-distended Musculoskeletal: Functional ROM of bilateral UE and LE Neuro Alert and oriented x1. Follows simple commands at times, unable to follow 3 step commands. Speech is clear, answers spontaneously at times, able to repeat no ifs ands or buts. Inconsistent naming objects, but can say "used for writing" when shown a pen CN: + left tongue deviation, facial drift, decreased shrug. MMT: grossly 5/5 right UE, ~4/5 left UE. Bilateral LE able to lift off bed, good strength Reflexes: 2-3+ UE/LE, + left clayton, babinski Skin: Intact with no visualized rashes Psych: calm, cooperative Results CBC & Chem 7: 10/16/24 06:22 10/16/24 06:22 Labs: Abnormal Lab Results - Last 24 Hours (Table) 10/15/24 10/15/24 10/15/24 Range/Units 07:09 11:43 16:38 WBC (3.8-10.6) k/uL Sodium (137-145) mmol/L Glucose (74-99) mg/dL POC Glucose (mg/dL) 172 H 234 H (70-110) mg/dL Total Protein (6.3-8.2) g/dL Triglycerides 159.00 H (0.00-149.00) mg/dL 10/15/24 10/16/24 10/16/24 Range/Units 20:14 06:00 06:22 WBC 13.2 H (3.8-10.6) k/uL Sodium (137-145) mmol/L Glucose (74-99) mg/dL POC Glucose (mg/dL) 229 H 208 H (70-110) mg/dL Total Protein (6.3-8.2) g/dL Triglycerides (0.00-149.00) mg/dL 10/16/24 Range/Units 06:22 WBC (3.8-10.6) k/uL Sodium 136 L (137-145) mmol/L Glucose 191 H (74-99) mg/dL POC Glucose (mg/dL) (70-110) mg/dL Total Protein 6.2 L (6.3-8.2) g/dL Triglycerides (0.00-149.00) mg/dL Assessment and Plan Assessment: # left hemiparesis secondary to acute ischemic stroke with symptoms of expressive aphasia, left upper extremity, left facial droop -therapies -fall precautions #Impaired gait and ADLs secondary to above #History of paroxysmal atrial fibrillation on Eliquis #Hypertension #Hyperlipidemia #Underlying history of mild dementia #DVT proph -plavix, heparin SQ #Diet -regular, heart healthy #Your medical dx and management Dispo: patient is functioning below her prior level of function, both patient and daughter would like [facility]. She is motivated and able to tolerate 3 hrs of therapy /day. Plan for hopeful admission to [facility] on 10/17/24. Patient seen and examined by Dr Shelton, note remotely prepped by Africa Causey PA-C
--- NOTE | 2024-10-16 13:34 | P.PN ---
Subjective Progress Note Date: 10/16/25 I am following-up with patient and no change in her neurological condition per nurse. Per the nurse, patient has dementia at baseline and is oriented X1 at baseline. Objective - Vital Signs Vital signs: Vital Signs Temp 97.4 F L 10/16/24 12:00 Pulse 80 10/16/24 12:50 Resp 17 10/16/24 12:00 BP 123/78 10/16/24 12:00 Pulse Ox 94 L 10/16/24 12:00 FiO2 Intake & Output 10/15/24 10/16/24 10/16/24 18:59 06:59 18:59 Intake Total 240 280 260 Output Total 200 Balance 240 80 260 Weight 78 kg Intake: IV 40 20 Invasive Line 1 20 10 Invasive Line 2 20 10 Oral 240 240 240 Output: Urine 200 Other: Voiding Method Diaper Diaper Diaper Incontinent Incontinent Incontinent External Catheter External Catheter External Catheter # Voids 1 1 - Exam General: Lying in bed and is not in acute distress. Neuro: The patient is awake, alert, oriented to self only. She is repeating phrases. ?expressive aphasia but hard to assess because of underlying dementia. Is following simple commands. Visual mcclelland are full to confrontation. No facial weakness. No dysarthria. Motor: Strength is 5/5 throughout uppers and wiggling toes symmetrically. Some of the other workup consisted of: TSH is 1.340 Lipid panel: TG 159, Cholestrol 151, LDL [address] of the head is reported as no evidence of acute intracranial pathology. Personally reviewed the CT and agree there is no acute process. Patient does have evidence of old stroke and appears mostly over the left more than the right CT angiography of the head and neck is reported as negative MRI Brain: Significantly limited examination due to patient condition and motion with several sequences not obtained. There appears to be a focus restricted diffusion within the right parietal periventricular white matter suggesting acute/subacute ischemia. Remote injuries to the bilateral isaac radiata. I personally reviewed it and was not convinced of acute or subacute ischemia. The focus seems more shine thru and was faint on DWI. 2D echo: Normal LV systolic function. - Labs CBC & Chem 7: 10/16/24 06:22 10/16/24 06:22 Labs: Abnormal Lab Results - Last 24 Hours (Table) 0310/15/24 10/15/24 Range/Units 07:09 16:38 20:14 WBC (3.8-10.6) k/uL Sodium (137-145) mmol/L Glucose (74-99) mg/dL POC Glucose (mg/dL) 234 H 229 H (70-110) mg/dL Total Protein (6.3-8.2) g/dL Triglycerides 159.00 H (0.00-149.00) mg/dL 10/16/24 10/16/24 10/16/24 Range/Units 06:00 06:22 06:22 WBC 13.2 H (3.8-10.6) k/uL Sodium 136 L (137-145) mmol/L Glucose 191 H (74-99) mg/dL POC Glucose (mg/dL) 208 H (70-110) mg/dL Total Protein 6.2 L (6.3-8.2) g/dL Triglycerides (0.00-149.00) mg/dL 10/16/24 Range/Units 11:29 WBC (3.8-10.6) k/uL Sodium (137-145) mmol/L Glucose (74-99) mg/dL POC Glucose (mg/dL) 221 H (70-110) mg/dL Total Protein (6.3-8.2) g/dL Triglycerides (0.00-149.00) mg/dL Assessment and Plan Assessment: This is a 74-year-old woman who presents the emergency department from her assisted living facility because of left lower facial droop and weakness. On examination the patient has is significant expressive aphasia with left facial droop. Is on Eliquis at home. Likely acute ischemic stroke with symptoms of left upper extremity, left facial droop with ?expressive aphasia. On MRI there is ?? focus restricted diffusion within the right parietal periventricular white matter suggesting acute/subacute ischemia but MRI was limited because of motion artifact. Underlying history of dementia and at baseline is oriented X1 History of paroxysmal atrial fibrillation on Eliquis Hypertension Hyperlipidemia Plan: Continue home dose of 81 mg daily. Can resume home Eliquis. If resumes then discontinue Plavix that was started by our team to avoid increased risk of bleed. Patient is on Lipitor 40 mg nightly for secondary stroke prophylaxis. Continue neurochecks Cardiac monitoring PT OT and INTERMEDIATE CARD TENDER are consulted. She is being evaluated by inpatient rehab. If she can obtain IPR will be great and will show benefit if can cooperate. Will defer the rest of the medical management to primary and other specialist Plan is discussed with the primary team SPORTS JOURNALIST. Otherwise, no additional neurological work-up. Time with Patient: Less than 30
--- NOTE | 2024-10-16 13:45 | P.PN ---
Subjective Progress Note Date: 10/16/24 Hospital Course: Patient is a pleasant 74-year-old female with a past medical history of paroxysmal atrial fibrillation on anticoagulation with Eliquis, hypertension, hyperlipidemia, insulin-dependent diabetes mellitus, and dementia with mild memory impairment on Namenda. She presented to the emergency department as a code stroke. Patient was reportedly found by staff at assisted living facility to be awake asking for a bowl of cereal when they noticed she had left sided facial droop and altered mental status immediately calling EMS for transfer to the hospital for concerns of acute CVA. Upon arrival to our facility, facial droop had resolved but patient remained altered. She underwent evaluation in the emergency department. Vital signs upon arrival show blood glucose 193, blood pressure 184/105, heart rate 98, respiratory rate 18, temp 98.0 F, and SpO2 of 96% on room air. EKG completed showing normal sinus rhythm at 95 bpm with left ventricular hypertrophy and T wave inversion in inferior leads III and aVF. CT brain was completed negative for acute intracranial process. CTA head and neck also reported negative. Labs completed and reviewed. CBC showing leukocytosis with WBC count of 14.6 and neutrophils of 11.6. Coagulation profile showing a low PTT of 21.1 otherwise normal findings. BMP showing sodium 136, slightly elevated BUN of 18 with blood glucose 202. Liver profile unremarkable. Creatinine kinase was low at 22. Troponin was 0.016.. Urinalysis negative for infection. Patient was given aspirin 325 mg p.o. x 1 dose and admitted under our services with consultation to neurology. Physical exam: Patient seen and fully evaluated at bedside this morning. Her speech is clear and she is speaking in longer sentences 3-4 words at a time and able to repeat words back, but she continues to have significant expressive aphasia and unable to identify most objects. Left upper extremity weakness seems to have improved but remains slightly weaker than right and she is moving bilateral lower extremities without any difficulties with equal and symmetrical strength and movement. Vital signs reviewed and stable. General: Nontoxic, no distress and appears stated age. Derm: Skin warm and dry, normal coloration for ethnicity. Head: Atraumatic, normocephalic and symmetric. Eyes: EOM's intact, no lid lag, and anicteric sclera Mouth: no lip lesions, mucus membranes moist Cardiovascular: regular rate and rhythm with normal S1S2, no murmur, positive posterior tibial pulses bilaterally, and cap refill < 2 seconds. Lungs: Respirations even, regular, and unlabored on room air. Lungs CTA bilaterally, no rhonchi, no rales, no wheezing, and no accessory muscle usage. Abdominal: soft, nontender to palpation, no guarding, no appreciable organomegaly Ext: No gross muscle atrophy, no edema, no contractures. Movement and sensation intact. Patient appears to have generalized weakness in bilateral lower extremities but is able to lift and bend without any difficulties independently. Upon examination patient does have some mild noted left upper extremity weakness when compared to right. Neuro: Speech clear, mild left-sided facial droop, patient able to state her name but has significant expressive aphasia and unable to identify simple objects such as pen, TV, left upper extremity weakness Psych: Alert and oriented to self only. Assessment and Plan of Care: Left-sided facial droop and altered mental status, acute/subacute ischemic CVA -Neurology following, discussed plan of care with Dr. Jacobs -Echocardiogram completed showing a preserved EF of 60 to 65% and no significant valvular or structural abnormalities reported. - Brain MRI completed showing limited examination due to patient condition and motion however there appears to be a focus of restricted diffusion within the right parietal periventricular white matter suggesting acute/subacute ischemia, remote injuries to the bilateral isaac radiata and redemonstration of confluent advanced periventricular and subcortical white matter changes related to small vessel ischemic disease. -TSH normal findings at 1.340, hemoglobin A1c is 8.3% and lipid profile remains pending. -NIH stroke scale with neuro checks every 4 hours and as needed -Daily aspirin 81 mg daily, Plavix 75 mg daily, and atorvastatin 40 mg nightly. -PT/OT following -Consult placed to speech and language pathologist -Consult placed to Dr. Buchanan for inpatient rehab -Fall precautions and provide pt with assistance as needed Paroxysmal atrial fibrillation Hypertension Hyperlipidemia -Continue medication regimen with atorvastatin 40 mg nightly and metoprolol 12.5 mg twice daily. -Eliquis held per recommendations from neurologist. Patient started on dual antiplatelet therapy with aspirin and Plavix and to resume Eliquis once cleared by neurology to resume. Insulin dependent diabetes mellitus with hyperglycemia -Hold metformin and Tradjenta continue Lantus 10 units nightly. Patient placed on glycemic protocol with NovoLog sliding scale. Hemoglobin A1c 8.3% Dementia with mild memory impairment -Continue Namenda 5 mg twice daily. Provide safe and supportive care with assistance and redirection as needed. Maintain fall precautions. Data and imaging reviewed: Morning labs reviewed. CBC showing mild leukocytosis with WBC count of 13.2 otherwise normal findings. BMP showing sodium 136 otherwise unremarkable with exception of elevated glucose of 191. Magnesium 2.2. Liver profile unremarkable with exception of low total protein of 6.2. Vital signs reviewed. Blood pressure 146/84, heart rate 82, respiratory rate 17, temp 97.9 F, and SpO2 of 94% on room air. Brain MRI completed showing limited examination due to patient condition and motion however there appears to be a focus of restricted diffusion within the right parietal periventricular white matter suggesting acute/subacute ischemia, remote injuries to the bilateral isaac radiata and redemonstration of confluent advanced periventricular and subcortical white matter changes related to small vessel ischemic disease. CODE STATUS: Full code DVT prophylaxis: SCDs, resume Eliquis once cleared by a neurologist Anticipated discharge date: Pending clinical course Anticipated discharge place: Inpatient rehab Patient was seen independently by Nurse Practitioner. This document was prepared using [employer] dictation software. Please allow for errors in senior lead software engineer while rare they do occur. Rayshawn Alexis NP rendered care for this patient independently, reviewed the findings and plan as documented in the note above and agree with plan. I did not physically speak with or examine the patient on this date. Objective - Vital Signs Vital signs: Vital Signs Temp 97.9 F 10/16/24 08:15 Pulse 82 10/16/24 08:15 Resp 17 10/16/24 08:15 BP 146/84 10/16/24 08:15 Pulse Ox 94 L 10/16/24 08:15 FiO2 Intake & Output 10/15/24 10/16/24 10/16/24 18:59 06:59 18:59 Intake Total 240 280 20 Output Total 200 Balance 240 80 20 Weight 78 kg Intake: IV 40 20 Invasive Line 1 20 10 Invasive Line 2 20 10 Oral 240 240 Output: Urine 200 Other: Voiding Method Diaper Diaper Diaper Incontinent Incontinent Incontinent External Catheter External Catheter External Catheter # Voids 1 1 - Labs CBC & Chem 7: 10/16/24 06:22 10/16/24 06:22 Labs: Abnormal Lab Results - Last 24 Hours (Table) 10/15/24 10/15/24 10/15/24 Range/Units 07:09 07:09 11:43 WBC (3.8-10.6) k/uL Sodium (137-145) mmol/L Glucose (74-99) mg/dL POC Glucose (mg/dL) 172 H (70-110) mg/dL Hemoglobin A1c 8.3 H (<=6.0) % Total Protein (6.3-8.2) g/dL Triglycerides 159.00 H (0.00-149.00) mg/dL 10/15/24 10/15/24 10/16/24 Range/Units 16:38 20:14 06:00 WBC (3.8-10.6) k/uL Sodium (137-145) mmol/L Glucose (74-99) mg/dL POC Glucose (mg/dL) 234 H 229 H 208 H (70-110) mg/dL Hemoglobin A1c (<=6.0) % Total Protein (6.3-8.2) g/dL Triglycerides (0.00-149.00) mg/dL 10/16/24 10/16/24 Range/Units 06:22 06:22 WBC 13.2 H (3.8-10.6) k/uL Sodium 136 L (137-145) mmol/L Glucose 191 H (74-99) mg/dL POC Glucose (mg/dL) (70-110) mg/dL Hemoglobin A1c (<=6.0) % Total Protein 6.2 L (6.3-8.2) g/dL Triglycerides (0.00-149.00) mg/dL
[2024-10-16 16:38] LABS: Glucose,Whole Blood 256 mg/dL (70-110)
[2024-10-16] MEDS: NYSTATIN 100,000 UNIT/GM POWD 15 GM TOPICAL PRN (17:26)
[2024-10-16 20:17] LABS: Glucose,Whole Blood 207 mg/dL (70-110)
[2024-10-16] MEDS: APIXABAN 5 MG TAB PO SCH (20:33)
[2024-10-17 06:14] LABS: Glucose,Whole Blood 174 mg/dL (70-110)
[2024-10-17 07:22] LABS: HCT 43.3 % (34.0-46.0); HGB 13.7 gm/dL (11.4-16.0); Hypochromasia Slight; MCH 27.6 pg (25.0-35.0); MCHC 31.7 g/dL (31.0-37.0); MCV 86.9 fL (80.0-100.0); Mean Platelet Volume 7.7; Platelet Count 278 k/uL (150-450); RBC 4.98 m/uL (3.80-5.40); RDW 13.5 % (11.5-15.5); WBC 13.9 k/uL (3.8-10.6)
[2024-10-17 07:37] LABS: ALT 29 U/L (4-34); AST 34 U/L (14-36); African American GFR (CKD) 82 (>60 ml/min/1.73 sqM); Alkaline Phosphatase 108 U/L (38-126); Anion Gap 10 mmol/L; Blood Urea Nitrogen 19 mg/dL (7-17); Calcium 10.1 mg/dL (8.4-10.2); Carbon Dioxide 25 mmol/L (22-30); Chloride 100 mmol/L (98-107); Glucose 174 mg/dL (74-99); Magnesium 1.8 mg/dL (1.6-2.3); Non-African American GFR(CKD) 71 (>60 ml/min/1.73 sqM); Potassium 4.1 mmol/L (3.5-5.1); Sodium 135 mmol/L (137-145); Total Protein 6.5 g/dL (6.3-8.2)
[2024-10-17 08:29] VITALS: BP 153/86; RESP 17; TEMP 97.6
[2024-10-17 09:04] VITALS: PULSE 87
--- NOTE | 2024-10-17 11:21 | P.DS ---
Providers Date of admission: 10/14/24 05:35 Attending physician: Cory Rivera MD Consults: 10/14/24 05:34 Consult Physician Routine Consulting Provider: Cesar Jacobs Consult Reason/Comments: code stroke Do you want consulting provider notified?: Yes 10/16/24 09:26 Consult Physician Routine Consulting Provider: Josesito Sanchez Consult Reason/Comments: eval for stroke rehab Do you want consulting provider notified?: Yes Primary care physician: Connor Hernandez Hospital Course: Discharge Diagnosis: Acute ischemic stroke with left-sided upper extremity weakness, left facial droop dementia paroxysmal A-fib on Eliquis Hypertension Hyperlipidemia Type II DM on insulin Hospital Course: Patient is a pleasant 74-year-old female with a past medical history of paroxysmal atrial fibrillation on anticoagulation with Eliquis, hypertension, hyperlipidemia, insulin-dependent diabetes mellitus, and dementia with mild memory impairment on Namenda. She presented to the emergency department as a co de stroke. Patient was reportedly found by staff at assisted living facility to be awake asking for a bowl of cereal when they noticed she had left sided facial droop and altered mental status immediately calling EMS for transfer to the hospital for concerns of acute CVA. Upon arrival to our facility, facial droop had resolved but patient remained altered. She underwent evaluation in the emergency department. Vital signs upon arrival show blood glucose 193, blood pressure 184/105, heart rate 98, respiratory rate 18, temp 98.0 F, and SpO2 of 96% on room air. EKG completed showing normal sinus rhythm at 95 bpm with left ventricular hypertrophy and T wave inversion in inferior leads III and aVF. CT brain was completed negative for acute intracranial process. CTA head and neck also reported negative. Labs completed and reviewed. CBC showing leukocytosis with WBC count of 14.6 and neutrophils of 11.6. Coagulation profile showing a low PTT of 21.1 otherwise normal findings. BMP showing sodium 136, slightly elevated BUN of 18 with blood glucose 202. Liver profile unremarkable. Creatinine kinase was low at 22. Troponin was 0.016.. Urinalysis negative for infection. Patient was given aspirin 325 mg p.o. x 1 dose and admitted under our services with consultation to neurology. Echocardiogram completed showing a preserved EF of 60 to 65% and no significant valvular or structural abnormalities reported.Brain MRI completed showing limited examination due to patient condition and motion however there appears to be a focus of restricted diffusion within the right parietal periventricular white matter suggesting acute/subacute ischemia, remote injuries to the bilateral isaac radiata and redemonstration of confluent advanced periventricular and subcortical white matter changes related to small vessel ischemic disease. Patient was initially started on aspirin and Plavix, Eliquis was on hold, continued on high intensity statins, later, Plavix was discontinued, patient will be discharged on aspirin 81 mg, Eliquis 5 mg twice daily and atorvastatin 40 mg nightly. IPR evaluated patient and recommended inpatient rehab, patient will be discharged on 10/17/2024 in stable condition. Patient seen and examined at bedside. Very pleasant, feeling better today, no active complaints Vital signs reviewed and stable. General: Nontoxic, no distress and appears stated age. Derm: Skin warm and dry, normal coloration for ethnicity. Head: Atraumatic, normocephalic and symmetric. Eyes: EOM's intact, no lid lag, and anicteric sclera Mouth: no lip lesions, mucus membranes moist Cardiovascular: regular rate and rhythm with normal S1S2, no murmur, positive posterior tibial pulses bilaterally, and cap refill < 2 seconds. Lungs: Respirations even, regular, and unlabored on room air. Lungs CTA bilaterally, no rhonchi, no rales, no wheezing, and no accessory muscle usage. Abdominal: soft, nontender to palpation, no guarding, no appreciable organomegaly Ext: No gross muscle atrophy, no edema, no contractures. Movement and sensation intact. Patient appears to have generalized weakness in bilateral lower extremities but is able to lift and bend without any difficulties independently. Upon examination patient does have some mild noted left upper extremity weakness when compared to right. Neuro: Speech clear, mild left-sided facial droop, patient able to state her name but has significant expressive aphasia and unable to identify simple objects such as pen, TV, left upper extremity weakness Psych: Alert and oriented to self only. A total of 40 minutes of time were spent preparing this complex discharge summary. Patient was discharged on 10/17/2024. Patient Condition at Discharge: Serious Plan - Discharge Summary New Discharge Prescriptions: Continue traMADol HCL/ACETAMINOPHEN [Ultracet 37.5-325] 1 tab PO BID PRN PRN Reason: Pain LORazepam [Ativan] 0.5 mg PO BID PRN PRN Reason: Anxiety Acetaminophen Tab [Tylenol] 650 mg PO Q6H PRN PRN Reason: Pain Atorvastatin [Lipitor] 40 mg PO HS Fluticasone/Umeclidin/Vilanter [Trelegy Ellipta 100-62.5-25] 1 puff INH ALATION RT-DAILY guaiFENesin-DM 100-10MG/5ML [Robitussin DM] 5 - 10 ml PO Q6H PRN PRN Reason: Cough Insulin Glargine,Hum.rec.anlog [Lantus Solostar Pen] 10 units SQ HS Ipratropium-Albuterol Nebulize [Duoneb 0.5 mg-3 mg/3 ml Soln] 3 ml INHALATION RT-TID Linagliptin [Tradjenta] 5 mg PO DAILY Loperamide HCl [Loperamide] 2 - 4 mg PO QID PRN PRN Reason: Diarrhea metFORMIN HCL 1,000 mg PO BID Metoprolol Tartrate [Lopressor] 12.5 mg PO BID Nystatin [Nystop] 1 applic TOPICAL BID Albuterol Sulfate [Albuterol Sulfate Hfa] 2 puff INHALATION RT-Q6H PRN PRN Reason: Shortness Of Breath Memantine HCl [Namenda] 5 mg PO BID Apixaban [Eliquis] 5 mg PO Q12HR@0800,1200 Aspirin EC [Ecotrin Low Dose] 81 mg PO DAILY Famotidine 20 mg PO DAILY Discharge Medication List Albuterol Sulfate [Albuterol Sulfate Hfa] 2 puff INHALATION RT-Q6H PRN 07/07/23 [History] LORazepam [Ativan] 0.5 mg PO BID PRN 07/07/23 [History] Memantine HCl [Namenda] 5 mg PO BID 07/07/23 [History] traMADol HCL/ACETAMINOPHEN [Ultracet 37.5-325] 1 tab PO BID PRN 07/07/23 [History] Acetaminophen Tab [Tylenol] 650 mg PO Q6H PRN 09/12/23 [History] Atorvastatin [Lipitor] 40 mg PO HS 09/12/23 [History] Apixaban [Eliquis] 5 mg PO Q12HR@0800,1200 10/14/24 [History] Aspirin EC [Ecotrin Low Dose] 81 mg PO DAILY 10/14/24 [History] Famotidine 20 mg PO DAILY 10/14/24 [History] Fluticasone/Umeclidin/Vilanter [Trelegy Ellipta 100-62.5-25] 1 puff INHALATION RT-DAILY 10/14/24 [History] Insulin Glargine,Hum.rec.anlog [Lantus Solostar Pen] 10 units SQ HS 10/14/24 [History] Ipratropium-Albuterol Nebulize [Duoneb 0.5 mg-3 mg/3 ml Soln] 3 ml INHALATION RT-TID 10/14/24 [History] Linagliptin [Tradjenta] 5 mg PO DAILY 10/14/24 [History] Loperamide HCl [Loperamide] 2 - 4 mg PO QID PRN 10/14/24 [History] Metoprolol Tartrate [Lopressor] 12.5 mg PO BID 10/14/24 [History] Nystatin [Nystop] 1 applic TOPICAL BID 10/14/24 [History] guaiFENesin-DM 100-10MG/5ML [Robitussin DM] 5 - 10 ml PO Q6H PRN 10/14/24 [History] metFORMIN HCL 1,000 mg PO BID 10/14/24 [History] Follow up Appointment(s)/Referral(s): Cesar Jacobs MD [STAFF PHYSICIAN] - 1 Week Connor Hernandez MD [Primary Care Provider] - 1-2 days Patient Instructions/Handouts: Ischemic Stroke (DC) Activity/Diet/Wound Care/Special Instructions: Please, follow-up with neurology, primary care physician. Be compliant with medications Discharge Disposition: TRANSFER TO SHORT TERM HOSP
[2024-10-17 11:37] LABS: Glucose,Whole Blood 237 mg/dL (70-110)
== END 2024-10-17 12:43 | DRG 66 ==
LOC: EC 04:05 → 3SCARD 05:35 → 4SSUR 10-17 00:57
PROVIDERS: ADMIT Internal Medicine; ATTEND Internal Medicine
DX: I63.9 Cerebral infarction, unspecified (principal); R47.01 Aphasia; D72.829 Elevated white blood cell count, unspecified; E11.9 Type 2 diabetes mellitus without complications; I48.0 Paroxysmal atrial fibrillation; E78.5 Hyperlipidemia, unspecified; F03.A0 Unspecified dementia, mild, without behavioral disturbance, psychotic disturbance, mood disturbance, and anxiety; G83.24 Monoplegia of upper limb affecting left nondominant side; I10 Essential (primary) hypertension; Z79.4 Long term (current) use of insulin; R29.810 Facial weakness; Z79.01 Long term (current) use of anticoagulants; Z79.82 Long term (current) use of aspirin; Z79.84 Long term (current) use of oral hypoglycemic drugs; Z79.899 Other long term (current) drug therapy; Z86.73 Personal history of transient ischemic attack (TIA), and cerebral infarction without residual deficits; Z87.440 Personal history of urinary (tract) infections; R26.9 Unspecified abnormalities of gait and mobility; Z88.2 Allergy status to sulfonamides
CPT/HCPCS: 36415; 70450; 70496; 70498; 70551; 71045; 80053; 80061; 81001; 82550; 83036; 83735; 84443; 84484; 85025; 85027; 85610; 85730; 93005; 93306; 94640; 94760; 99291